=== PATIENT | female | born 1985 | race Caucasian/White ===

== ENCOUNTER → 2023-09-10 11:30 | Outpatient (BNV) | payer OTHER, SELFPAY | PROVIDERS: Visit Provider Psychiatry & Neurology Psychiatry | DX: F32.9 Major depressive disorder, single episode, unspecified (principal); F41.1 Generalized anxiety disorder; F90.9 Attention-deficit hyperactivity disorder, unspecified type; F43.89 Other reactions to severe stress; F69 Unspecified disorder of adult personality and behavior; F48.9 Nonpsychotic mental disorder, unspecified | CPT/HCPCS: 90792; 99213 ==

== ENCOUNTER → 2023-09-11 13:51 | Outpatient (REF) | payer OTHER, SELFPAY ==
--- NOTE | 2023-09-11 | ECG_ITS ---
Test Reason : CHECK QTC Blood Pressure : / mmHG Vent. Rate : 069 BPM Atrial Rate : 069 BPM P-R Int : 164 ms QRS Dur : 142 ms QT Int : 462 ms P-R-T Axes : 060 -34 123 degrees QTc Int : 495 ms Normal sinus rhythm Left axis deviation Left ventricular hypertrophy with QRS widening and repolarization abnormality ( R in aVL , [place] product , Romhilt-Mattson ) Abnormal ECG No previous ECGs available Referred By: Dana Bond Electronically Signed By:Dc Church
== END ==
LOC: HO.CARD 13:51
PROVIDERS: PCP Family Medicine; Visit Provider Psychiatry & Neurology Psychiatry
DX: F32.9 Major depressive disorder, single episode, unspecified (principal); Q21.0 Ventricular septal defect
CPT/HCPCS: 93005

== ENCOUNTER → 2023-09-11 14:09 | Outpatient (BNV) | payer OTHER, SELFPAY | PROVIDERS: PCP Family Medicine; Visit Provider Internal Medicine Cardiovascular Disease | DX: R94.31 Abnormal electrocardiogram [ECG] [EKG] (principal) | CPT/HCPCS: 93010 ==

== ENCOUNTER 2023-09-22 10:45 | Outpatient (RCR) | payer OTHER, SELFPAY ==
[2023-09-04 12:07] VITALS: BP 126/78; PULSE 63; TEMP 37.1; BMI 25.1
--- NOTE | 2023-09-04 12:51 | PC.ADMIT ---
Patient is a 37 year old non-binary individual who uses they/them pronouns. Patient was referred by Inpatient Behavioral Health unit at [facility] where they were admitted on 08/09-08/27/22 s/p overdose on 30 mg of Ativan mixed with a bottle of wine. Patient's reportedly found them unresponsive with shallow breathing. Prior to inpatient admission patient was admitted medically secondary to overdose for further management. BAL 71, toxicology screen positive for benzodiazapines. Shane was given Flumazenil for BDZ OD reversal with good affect and IV fluids. 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 They are on Warfarin daily. Patient reportedly had an argument with their the day of the overdose. Patient is currently alert and oriented x4. Calm and cooperative. Denied SI, HI. Patient given a copy of their safety plan and I reviewed the plan with them. Feels guilt and shame regarding overdose attempt and talking about their to others at work. Regarding the overdose attempt patient stated, I feel a lot of guilt and shame and how much I hurt my . I feel more and more glad that it didn't work . Medications reconciled with patient and patient's discharge paperwork from [facility] inpatient unit. Patient reports taking medications as prescribed.
--- NOTE | 2023-09-04 15:44 | PHP/IOPCOSI ---
Sals treatment plan was reviewed by the [facility] [place]. Their case has been opened and reviewed.
--- NOTE | 2023-09-04 17:59 | HO.PS.ADMBH ---
HPI Date of Service: 09/04/23 Chief Complaint: depression,SHANA,ADHD Sources of Information: patient interviewed, chart reviewed and crisis/core team assessment reviewed Additional Sources of Information: Patient prefers they/them pronouns. HPI Narrative: This is the first PHP admission for this 37 year non-binary patient with history significant for mental health and cardiac issues on warfarin, who was referred as a stepdown from recent IPLOC at [facility] APTU status post intentional overdose on lorazepam. They share their long standing struggles with depression, chronic SI, anxiety, ADHD. They deny any issues with alcohol or substance use. No history of psychotic symptoms. They report having a lot of guilt and shame over her actions and the stress and trauma this inflicted on their . They describe ongoing mood lability, feeling easily overwhelmed, high emotional reactivity and interpersonal hypersensitivity, poor stress/anxiety tolerance and experiences both cognitive and somatic anxiety including panic symptoms and insomnia. They deny any further SI since IP admission, denies any thoughts of harming self or others. They have been trying to focus on self care and continues to take a leave of absence from work using accrued sick time. They work as a speech and language pathologist and lives at home with her and cat. They are on a regime of medication including Concerta, ABilify, Lexapro which was recently increased. While inpatient, lorazepam, Buspar and amitriptyline was stopped. They were started on melatonin. They deny any significant issues with irritability or anger. Deny any aggressive ideation or HI. No AH or VH. Past Psychiatric History: IP psych hospitalization x1: APTU 07/2023 No PHP or detox admissions Hx of suicide attempts by overdose: 07/2023 and at age 14 SIB while IP OP therapist: Shameka Nielsen PsyD OP psych provider: Morenita Acevedo MD PCP: Gwendolyn Beckford MD Previous trials: lorazepam, buspirone, amitriptyline (for GI issues, otherwise ineffective) were stopped due to overdose and cardiac concerns. There is a history of other antidepressant and medication trials CURRENT MEDICATIONS: Abilify 2 mg qd Lexapro 20 mg qd Concerta 27 mg qAM trazodone 50-100 mg qhs PRN sleep melatonin hydroxyzine 50 mg PRN anxiety ramipril 1.25 mg qd Coumadin 10 mg qd (exc 15 mg qd //) Iron 65 mg qd [facility] Medical History (Updated 09/08/23 @ 09:50 by Dana Bond MD) On warfarin therapy ADHD Ventricular septal defect (VSD) Surgical History (Updated 09/04/23 @ 12:06 by Valerie Gutierrez RN) Aortic valve replaced H/O aortic valve repair Pulmonary valve replaced Social History: Lives at home with x 5 yrs No children Substance History: Alcohol: uses about 1x every few weeks, none since discharge Cannabis: none No substance use Trauma History: Endorses trauma history Diagnostics Vital Signs (24Hr): Vital Signs - 24 hr 09/04/23 12:07 Temperature 98.8 F Pulse Rate 63 Blood Pressure 126/78 BMI result Body Mass Index 25.1 Meds/Allergies Meds Home Medications Medication Instructions Recorded Confirmed Type ferrous sulfate 325 mg (65 mg 325 mg PO DAILY 09/04/23 09/04/23 History iron) tablet (Iron (ferrous sulfate)) melatonin 3 mg tablet 3 mg PO BEDTIME PRN Insomnia 09/04/23 09/04/23 History methylphenidate HCl 27 mg 27 mg PO DAILY 09/04/23 09/04/23 History tablet,extended release 24 hr ramipril 1.25 mg capsule 1.25 mg PO DAILY 09/04/23 09/04/23 History warfarin 10 mg tablet See Rx Instructions .Route .COMPLEX 09/16/23 09/16/23 History Allergies Allergies Allergy/AdvReac Type Severity Reaction Status Date / Time lactose Allergy Gastrointestinal Verified 09/04/23 13:04 Upset Mental Status Exam Mental Status Exam Narrative: Alert, oriented, in no acute distress. Calm, cooperative, engaged. No psychomotor agitation or neurovegetative retardation. Eye contact maintained. Mood anxious, affect constricted. Speech normal. Thought process linear, coherent. Thought content related to stressors, +transient helplessness, hopelessness but denies any passive SI, no suicidal intent, urge or plan. No aggressive ideation or HI. No paranoia or delusional content elicited. No evidence of psychosis. Insight and judgment fair but adequate. Assessment & Plan Assessment & Plan (1) Major depressive disorder: Status: Acute Code(s): F32.9 - Major depressive disorder, single episode, unspecified (2) Generalized anxiety disorder: Status: Acute Code(s): F41.1 - Generalized anxiety disorder (3) ADHD: Status: Acute Code(s): F90.9 - Attention-deficit hyperactivity disorder, unspecified type (4) Mental and behavioral problem in adult: Status: Acute Code(s): F69 - Unspecified disorder of adult personality and behavior; F48.9 - Nonpsychotic mental disorder, unspecified Assessment and Plan: r/o gender dysphoria r/o character pathology r/o complex PTSD Plan Admit to [facility] continue regular medications no refills required at this time continue to monitor as per protocol Patient educated on: diagnosis and medication risk/benefits Informed Consent: understands Reason for continued partial hosp. stay Substantial Risk for: inability to function, rapid decompensation and med/psych decompensation Certification I certify that partial hospital treatment is medically necessary due to the symptoms and problems resulting from the patient's mental illness and the failure to treat the patient at the partial hospital level of care would likely result in the patient requiring inpatient psychiatric care which could not be prevented at a less intensive level of care. Time Spent With Patient Time: Total time managing care of this patient today _60___ minutes.
--- NOTE | 2023-09-09 22:00 | P.PNPSP_ITS ---
Subjective Subjective Date of Service: 09/09/23 Reason For Visit: depression,SHANA,ADHD Interim History: Still not sleeping . Patient seen as requested as she is having some trouble sleeping. They take melatonin and 100 mg of trazodone at 9pm, then fall asleep easily enough but is then awakened sometime between 2-4 am, and are unable to fall back asleep for over an hour or 2. They typically will take some hydroxyzine in the middle of the night, and perhaps falls asleep for another hour and then wakes in the AM still tired. Getting a total of 5 hours. The hydroxyzine does not make her any more tired in the morning than when they dont take any. They report their mood is OK , overall stable, still presents as depressed, blunted affect but mostly focused on sleep issues. Anxiety persists, but feels like they are working through managing stress and anxiety better although frustration with sleep interferes. They deny any AVH, paranoia or SI or HI. Medication Compliance: Yes Side effects from medications: No Attending Groups: Yes Review of Systems Acute medical concerns: No Mental Status Exam Mental Status Exam Narrative: Alert, oriented, in no acute distress. Calm, cooperative, engaged. No psychomotor agitation or neurovegetative retardation. Eye contact maintained. Mood anxious, affect constricted. Speech normal. Thought process linear, coherent. Thought content related to stressors, denies any helplessness, hopelessness or SI. No aggressive ideation or HI. No paranoia or delusional content elicited. No evidence of psychosis. Insight and judgment fair but adequate. Diagnostics Vital Signs (24Hr): BMI result Body Mass Index 25.1 Assessment & Plan Assessment & Plan (1) Generalized anxiety disorder: Status: Acute Code(s): F41.1 - Generalized anxiety disorder (2) Major depressive disorder: Status: Acute Code(s): F32.9 - Major depressive disorder, single episode, unspecified (3) ADHD: Status: Acute Code(s): F90.9 - Attention-deficit hyperactivity disorder, unspecified type (4) Mental and behavioral problem in adult: Status: Acute Code(s): F69 - Unspecified disorder of adult personality and behavior; F48.9 - Nonpsychotic mental disorder, unspecified Assessment and Plan: r/o gender dysphoria r/o character pathology r/o complex PTSD Plan hold trazodone patient wishing to have TCA returned however given cardiac hx, there are likely other alternatives that would be safer start mirtazapine 7.5 - 15 mg qhs may consider zolpidem if mirtazapine for ineffective continue ABilify 2 mg qHS (?interfering with sleep) escitalopram 20 mg qd Concerta 27 mg qd ramipril 1.25 mg continue hydroxyzine 50 mg qd PRN melatonin 3 mg qhs PRN lab slip for EKG continue to monitor Patient educated on: diagnosis and medication risk/benefits Informed Consent: understands Reason for contiued partial hosp. stay Substantial Risk for: inability to function and med/psych decompensation Certification I certify that partial hospital treatment is medically necessary due to the symp toms and problems resulting from the patient's mental illness and the failure to treat the patient at the partial hospital level of care would likely result in the patient requiring inpatient psychiatric care which could not be prevented at a less intensive level of care. Total time managing care of this patient today __30__ minutes. Discharge Plan Discharge Attending provider: Dana Bond Medications: New mirtazapine 15 mg tablet 15 mg PO BEDTIME Qty: 14 0RF No Action trazodone 50 mg tablet 50 - 100 mg PO BEDTIME PRN (Reason: insomnia) hydroxyzine pamoate 50 mg Capsule 50 mg PO DAILY PRN (Reason: anxiety, nausea) melatonin 3 mg Tablet 3 mg PO BEDTIME PRN (Reason: Insomnia) ramipril 1.25 mg capsule 1.25 mg PO DAILY methylphenidate HCl 27 mg tablet extended release 24hr 27 mg PO DAILY escitalopram oxalate 20 mg tablet 20 mg PO QAM aripiprazole 2 mg Tablet 2 mg PO BEDTIME ferrous sulfate [Iron (ferrous sulfate)] 325 mg (65 mg iron) Tablet 325 mg PO DAILY Stand Alone Forms: Patient Portal Discharge page
--- NOTE | 2023-09-16 14:32 | PC.NURSE ---
Addendum entered by Valerie Gutierrez RN 09/24/23 08:19: Faxed EKG results competed on 09/11/23 to Shane's Information Systems Security Developer Dr. Malia Tavarez office on 09/22/23. I received a message from Mahendra JIMENEZ from Dr. Tavarez office stating the EKG that they received from us was reviewed by the nurse practitioner in the office and the results remain unchanged from Shane's last EKG. Addendum entered by Valerie Gutierrez RN 09/18/23 12:23: Discharge records from [facility] EKG results on 08/14/23 NSR, Left Axisi Deviation, Right bundle branch block, Left ventricular hypertrophy with repolarization abnormality (R in aVL, Romhilt-Mattson. Abnormal EKG when compared to 08/09/23. Dr Bond aware. Original Note: On 09/12/23 reviewed abnormal EKG results with Dr Bond. QTc 495, Normal Sinus Rhythm. Left Barnum Deviation, Left ventricular hypertrophy with QRS widening and repolarization abnormality (R in a VL, [place] product, Romhilt-Mattson. No new orders.
--- NOTE | 2023-09-16 20:20 | HO.PHPPROGNO ---
Subjective Subjective Date of Service: 09/16/23 Reason For Visit: depression,SHANA,ADHD Interim History: Patient seen for follow up. They report continues struggles with sleep, have been up since 2 am. Have gotten < 15 hours of sleep over the past 3 day weekend. is noticing their baseline anxiety is very high. Mood continues to be problematic, either feeling nothing or feeling awful . is concerned about their anxiety because that's when they lots of thoughts of self harming. They have some of these thoughts presently but no intention or plan to act on these thoughts or compulsions. They deny any suicidal ideation/ i/ u/ p. Energy is very low, concentration also poor due to poor sleep. Almost did not come to program today. Social anxiety more notable when stress tolerance low. Describes emotional lability ongoing can't tell if ABilify helping, but denies any worse. Denies any adverse effects. We discussed plan to switch off Lexapro and onto Paxil and further titrating ABilify. Patient presents with more lability today, I suspect this is due to poor sleep but for now will hold off on the Ambien and will offer short term clonazepam to help with sleep, acute anxiety in the short term. Especially given that patient had managed sleep in the past successfully with lorazepam, however patient had a significant overdose on lorazepam. SHe says she would nonetheless be open to taking a benzodiazepine because she recognizes she is in a much worse place mentally for the lack of sleep . We included their in our discusssion today, including safety planning. agrees that a PRN clonazepam would be helpful just for the next few days in order to help with sleep and to manage anxiety especially in order to tolerate PHP/group therapy, and feel less overstimulated. ROS reviewed, positive for headache today. Appetite variable, no change. Patient denies any alcohol or substance use. Medication Compliance: Yes Side effects from medications: Yes (as noted above) Review of Systems Acute medical concerns: No Mental Status Exam Mental Status Exam Narrative: Alert, oriented, in no acute distress. Calm, cooperative, engaged. Appears tired. No psychomotor agitation or neurovegetative retardation. Eye contact variable. Mood anxious, depressed affect more labile. Speech normal. Thought process linear, coherent, more scattered. Thought content related to stressors, transient helplessness, hopelessness, +thoughts of self harming, but denies any intent or plan to harm self, denies any SI. No aggressive ideation or HI. No paranoia or delusional content elicited. No evidence of psychosis. Insight and judgment fair but adequate. Diagnostics Vital Signs (24Hr): BMI result Body Mass Index 25.1 Assessment & Plan Assessment & Plan (1) Major depressive disorder: Status: Acute Code(s): F32.9 - Major depressive disorder, single episode, unspecified (2) Generalized anxiety disorder: Status: Acute Code(s): F41.1 - Generalized anxiety disorder (3) ADHD: Status: Acute Code(s): F90.9 - Attention-deficit hyperactivity disorder, unspecified type (4) Other acute reactions to stress: Status: Acute Code(s): F43.89 - Other reactions to severe stress (5) Mental and behavioral problem in adult: Status: Acute Code(s): F69 - Unspecified disorder of adult personality and behavior; F48.9 - Nonpsychotic mental disorder, unspecified Assessment and Plan: Borderline traits Plan start clonazepam 1 mg tonight hold zolpidem start paroxetine 10 mg qhs decrease escitalopram to 10 mg, plan to taper off continue Abilify 2 mg daily for now, will plan to titrate after switching antidepressant continue other regular medications pending lab work EKG result reviewed - prolonged QTc 495 ms, improved from previous EKG (will discont Lexapro, Paxil has better profile re: QTc) Safety planning reviewed with patient and during session today ( is holding onto patient's medications and is aware of BZD script and agreeable with plan) continue to monitor closely Patient educated on: diagnosis and medication risk/benefits Informed Consent: understands Reason for contiued partial hosp. stay Substantial Risk for: harm to self, inability to function, rapid decompensation and med/psych decompensation Certification I certify that partial hospital treatment is medically necessary due to the symptoms and problems resulting from the patient's mental illness and the failure to treat the patient at the partial hospital level of care would likely result in the patient requiring inpatient psychiatric care which could not be prevented at a less intensive level of care. Total time managing care of this patient today __40__ minutes. Discharge Plan Discharge Attending provider: Dana Bond Medications: New aripiprazole 5 mg tablet 5 mg PO DAILY Qty: 14 0RF paroxetine HCl 40 mg tablet 40 mg PO .QHS 14 Days Qty: 14 0RF Continued melatonin 3 mg Tablet 3 mg PO BEDTIME PRN (Reason: Insomnia) ramipril 1.25 mg capsule 1.25 mg PO DAILY methylphenidate HCl 27 mg tablet extended release 24hr 27 mg PO DAILY ferrous sulfate [Iron (ferrous sulfate)] 325 mg (65 mg iron) Tablet 325 mg PO DAILY warfarin 10 mg tablet See Rx Instructions .ROUTE .COMPLEX Rx Instructions: Take 10 mg on Sundays and 15 mg on Friday-Friday or as directed by Coumadin clinic. Changed clonazepam 1 mg tablet 1 mg PO .QHS PRN (Reason: insomnia) Qty: 10 0RF hydroxyzine pamoate 50 mg Capsule 50 mg PO BEDTIME PRN (Reason: sleep) Qty: 10 0RF zolpidem 5 mg tablet 7.5 mg PO BEDTIME PRN (Reason: for sleep) Qty: 15 0RF Discontinued trazodone 50 mg tablet 50 - 100 mg PO BEDTIME PRN (Reason: insomnia) escitalopram oxalate 20 mg tablet 20 mg PO QAM aripiprazole 2 mg Tablet 2 mg PO BEDTIME Stand Alone Forms: Patient Portal Discharge page Patient Education: Depression (DC)
--- NOTE | 2023-09-19 22:40 | P.PNPSP_ITS ---
Subjective Subjective Date of Service: 09/19/23 Reason For Visit: depression,SHANA,ADHD Interim History: Continues to struggle with sleep. Took 1 mg of clonazepam around 9pm was able to fall asleep for a couple of hours, but woke at 1am and took another 0.5 mg tablet which was unhelpful and they were unable to fall back asleep. They are feeling thready and increasingly overwhelmed by the lack of sleep. Mood remains depressed, but they feel safe. Their partner has been helpful and supportive. They worry they are burdensome. Occasional passive SI without intent or plan, denies currently but relays feeling generally pessimistic. They are willing to increase ABilify to 2.5 mg tonight and then increase to 5 mg over the weekend. They picked up the Paxil the other day but have not started yet. They have been taking Lexapro now at 10 mg. We will plan to cross taper over the next upcoming days as tolerated. They will start 10 mg Paxil and if tolerated, will increase to 20 mg Friday and decrease Lexapro to 5 mg. BY Friday will taper off Lexparo and Paxil will be at 30 mg qhs. In the mean time, will allow patient to restart Ambien and continue along with clonazepam PRN to see if patient will be able to sleep. They are looking forward to spending time with partner in [facility] for the [place]selia loz[place]. They are staying in an expensive hotel that they got for a good deal. Mental Status Exam Mental Status Exam Narrative: Alert, oriented, in no acute distress. Calm, cooperative, engaged. No psychomotor agitation or neurovegetative retardation. Eye contact maintained. Mood depressed, anxious affect constricted. Speech normal. Thought process linear, coherent. Thought content related to stressors, transient hopelessness, denies SI or HI. No paranoia or delusional content elicited. No evidence of psychosis. Insight and judgment impaired. Diagnostics Vital Signs (24Hr): BMI result Body Mass Index 25.1 Assessment & Plan Assessment & Plan (1) Major depressive disorder: Status: Acute Code(s): F32.9 - Major depressive disorder, single episode, unspecified (2) Generalized anxiety disorder: Status: Acute Code(s): F41.1 - Generalized anxiety disorder (3) ADHD: Status: Acute Code(s): F90.9 - Attention-deficit hyperactivity disorder, unspecified type (4) Other acute reactions to stress: Status: Acute Code(s): F43.89 - Other reactions to severe stress Plan increase Abilify to 2.5 mg and then onto 5 mg daily start paroxetine 10 mg tonight, if tolerated increase dose of paroxetine to 20 mg over weekend decrease escitalopram to 5 mg, plan to taper off continue clonazepam 1 mg qhs PRN reinstate zolpidem 5 - 10 mg qhs PRN along with clonazepam continue other regular medications pending lab work EKG result reviewed - prolonged QTc 495 ms, improved from previous EKG (will discont Lexapro, Paxil has better profile re: QTc) continue to monitor Patient educated on: diagnosis and medication risk/benefits Informed Consent: understands Reason for contiued partial hosp. stay Substantial Risk for: harm to self, inability to function, rapid decompensation and med/psych decompensation Certification I certify that partial hospital treatment is medically necessary due to the symptoms and problems resulting from the patient's mental illness and the failure to treat the patient at the partial hospital level of care would likely result in the patient requiring inpatient psychiatric care which could not be prevented at a less intensive level of care. Total time managing care of this patient today __30__ minutes. Discharge Plan Discharge Attending provider: Dana Bond Medications: New zolpidem 5 mg tablet 5 mg PO BEDTIME PRN (Reason: for sleep) Qty: 20 0RF escitalopram oxalate 10 mg tablet 10 mg PO DAILY Qty: 14 0RF aripiprazole 5 mg tablet 5 mg PO DAILY Qty: 14 0RF paroxetine HCl 20 mg tablet 20 mg PO .QHS Qty: 14 0RF clonazepam 1 mg tablet 1 - 1.5 mg PO BEDTIME PRN (Reason: insomnia) Qty: 20 0RF Rx Instructions: administer 30 minutes before bedtime Continued melatonin 3 mg Tablet 3 mg PO BEDTIME PRN (Reason: Insomnia) ramipril 1.25 mg capsule 1.25 mg PO DAILY ferrous sulfate [Iron (ferrous sulfate)] 325 mg (65 mg iron) Tablet 325 mg PO DAILY Discontinued trazodone 50 mg tablet 50 - 100 mg PO BEDTIME PRN (Reason: insomnia) escitalopram oxalate 20 mg tablet 20 mg PO QAM aripiprazole 2 mg Tablet 2 mg PO BEDTIME No Action hydroxyzine pamoate 50 mg Capsule 50 mg PO DAILY PRN (Reason: anxiety, nausea) methylphenidate HCl 27 mg tablet extended release 24hr 27 mg PO DAILY warfarin 10 mg tablet See Rx Instructions .ROUTE .COMPLEX Rx Instructions: Take 10 mg on Sundays and 15 mg on Friday-Friday or as directed by Coumadin clinic. Stand Alone Forms: Patient Portal Discharge page
--- NOTE | 2023-09-22 17:37 | P.PNPSP_ITS ---
Subjective Subjective Date of Service: 09/22/23 Reason For Visit: depression,SHANA,ADHD Interim History: Patient seen for follow-up, anticipating discharge at the end of program today.? Medication compliant, medications well-tolerated. Denies any adverse effects. Reports feeling relatively okay today, was anxious a little in the morning . She is feeling less agitated with increase of Abilify to 5 mg and also Paxil was at 20 mg, and Lexapro was tapered from 10 to 5 mg last night. They have tolerated cross taper thus far, and will plan to complete transition onto full tablet of Paxil 40 mg and off Lexapro at end of the week. Sleep is improving, they have been taking Klonopin and Ambien. Mood is still anxious, but less depressed and says they are better able to manage the anxiety, now that they are getting some sleep.? Denies any hopelessness or SI. No SIB over weekend. Denies thoughts of harming self or others at this time. Denies any aggressive ideation or HI. Denies any paranoia or AH or VH. Sleep, appetite, energy stable. Medication Compliance: Yes Side effects from medications: No Attending Groups: Yes Review of Systems Acute medical concerns: No Mental Status Exam Mental Status Exam Narrative: Alert, oriented, in no acute distress. Calm, cooperative. Mood less depressed, affect some brightening, more appropriate. Speech normal. Thought process linear, coherent, more goal-directed. Thought content related to stressors, future-oriented, denies any helplessness, hopelessness or SI.? No aggressive ideation or HI. No paranoia or delusional content elicited. No evidence of psychosis. Insight and judgment fair-good. Diagnostics Vital Signs (24Hr): BMI result Body Mass Index 25.1 Assessment & Plan Assessment & Plan (1) Major depressive disorder: Status: Acute Code(s): F32.9 - Major depressive disorder, single episode, unspecified (2) Generalized anxiety disorder: Status: Acute Code(s): F41.1 - Generalized anxiety disorder (3) Other acute reactions to stress: Status: Acute Code(s): F43.89 - Other reactions to severe stress (4) ADHD: Qualifiers: Attention deficit-hyperactivity disorder type: unspecified Qualified Code(s): F90.9 - Attention-deficit hyperactivity disorder, unspecified type Status: Acute Code(s): F90.9 - Attention-deficit hyperactivity disorder, unspecified type Assessment and Plan: hx of diagnosis per patient report (5) Mental and behavioral problem in adult: Status: Acute Code(s): F69 - Unspecified disorder of adult personality and behavior; F48.9 - Nonpsychotic mental disorder, unspecified Assessment and Plan: Borderline traits Plan Discharge from [facility] continue regular medications plan to titrate to 40 mg of Paxil and off of Lexapro in 4 days continue Abilify 5 mg qhs continue PRN Ambien and will taper off use of BZD as previously discussed w pt continue other regular medication will defer further medication management to outpatient provider - next appointment with Dr. Morenita Acevedo on September 28 they plan to inquire about seeing their therapist twice a week (rather than weekly) Refills sent to pharmacy Patient educated on: diagnosis and medication risk/benefits Informed Consent: understands Reason for contiued partial hosp. stay Substantial Risk for: stable for discharge Certification I certify that partial hospital treatment is medically necessary due to the symptoms and problems resulting from the patient's mental illness and the failure to treat the patient at the partial hospital level of care would likely result in the patient requiring inpatient psychiatric care which could not be prevented at a less intensive level of care. Total time managing care of this patient today _30___ minutes. Discharge Plan Discharge Attending provider: Dana Bond Medications: New aripiprazole 5 mg tablet 5 mg PO DAILY Qty: 14 0RF paroxetine HCl 40 mg tablet 40 mg PO .QHS 14 Days Qty: 14 0RF Continued melatonin 3 mg Tablet 3 mg PO BEDTIME PRN (Reason: Insomnia) ramipril 1.25 mg capsule 1.25 mg PO DAILY methylphenidate HCl 27 mg tablet extended release 24hr 27 mg PO DAILY ferrous sulfate [Iron (ferrous sulfate)] 325 mg (65 mg iron) Tablet 325 mg PO DAILY warfarin 10 mg tablet See Rx Instructions .ROUTE .COMPLEX Rx Instructions: Take 10 mg on Sundays and 15 mg on Friday-Friday or as directed by Coumadin clinic. Changed clonazepam 1 mg tablet 1 mg PO .QHS PRN (Reason: insomnia) Qty: 10 0RF hydroxyzine pamoate 50 mg Capsule 50 mg PO BEDTIME PRN (Reason: sleep) Qty: 10 0RF zolpidem 5 mg tablet 7.5 mg PO BEDTIME PRN (Reason: for sleep) Qty: 15 0RF Discontinued trazodone 50 mg tablet 50 - 100 mg PO BEDTIME PRN (Reason: insomnia) escitalopram oxalate 20 mg tablet 20 mg PO QAM aripiprazole 2 mg Tablet 2 mg PO BEDTIME Stand Alone Forms: Patient Portal Discharge page Patient Education: Depression (DC) Telehealth Telehealth Location of provider rendering services: other (private office) Location of patient: other ([facility]) Patient Identification confirmed using: Name, : Yes Telehealth method: video Patient verbally consented to treatment: Yes
== END 2023-09-22 23:59 | disposition home or self-care (01) ==
LOC: HO.PHPA 10:45
PROVIDERS: Visit Provider Psychiatry & Neurology Psychiatry
DX: F32.9 Major depressive disorder, single episode, unspecified (principal); F41.1 Generalized anxiety disorder; F90.9 Attention-deficit hyperactivity disorder, unspecified type; F69 Unspecified disorder of adult personality and behavior; F48.9 Nonpsychotic mental disorder, unspecified; F43.89 Other reactions to severe stress; Z79.899 Other long term (current) drug therapy
CPT/HCPCS: 90791; 90853

== ENCOUNTER 2024-10-02 13:07 | Inpatient (IN) | payer BC, SELFPAY ==
[2024-10-02 13:11] VITALS: BP 152/72; PULSE 82; RESP 14; TEMP 36.2; O2SAT 100; BMI 29.4
[2024-10-02 13:28] VITALS: RESP 14
--- NOTE | 2024-10-02 13:36 | MHC.EDTECH ---
pt changed over into hospital attire, belongings checked by security, list created and printed in chart, placed in [facility]. pt significant other at bedside, took some of pt belongings home. given water and rosalind ariana, sitting quietly in room area at this time
[2024-10-02 14:29] LABS: MANUAL DIFF FLAG NO
[2024-10-02 14:30] LABS: Basophils Absolute Auto 0.1 X10*3/uL (0.0-0.2); Basophils Percent Auto 1.6 % (0-2); Eosinophils Absolute Auto 0.2 X10*3/uL (0.0-0.4); Hematocrit 43.7 % (37.0-47.0); Hemoglobin 15.3 g/dl (12.0-16.0); Imm Gran Abs Auto 0.02 X10*3/uL (0.00-0.03); Imm Gran Pct Auto 0.3 % (0.0-0.4); Lymphocytes Absolute Auto 1.2 X10*3/uL (1.2-4.9); Lymphocytes Percent Auto 16.6 % (20-40); Mean Corpuscular Hemoglobin 29.3 pg (27.0-33.0); Mean Corpuscular Volume 83.7 fL (80.0-98.0); Mean Platelet Volume 9.5 fL (9.4-12.3); Monocytes Absolute Auto 0.5 X10*3/uL (0.1-1.2); Monocytes Percent Auto 6.5 % (2-11); Neutrophils Absolute Auto 5.3 x10*3/uL (2.0-8.3); Platelet Count 334 X10*3/uL (160-400); Red Blood Count 5.22 X10*6/uL (4.20-5.50); Red Cell Distribution Width 12.7 % (11.0-16.0); White Blood Count 7.3 X10*3/uL (4.8-10.8)
--- NOTE | 2024-10-02 14:45 | ED.PSYCH ---
HPI - Psych General Chief Complaint: Psychiatric Symptoms Stated Complaint: crisis Time Seen by Provider: 10/02/24 13:32 Source: patient Mode of arrival: ambulatory Limitations: no limitations History of Present Illness ED Provider: ROSA Villarreal HPI Narrative: 38-year-old female history of depression, anxiety, ADHD, ventricular septal defect with mechanical valve in place and on anticoagulation therapy who goes by they them or their presents w/ cc of I tried to comit suicide . They tell me that they cut their right forearm in hopes to . Patient up-to-date on tetanus shot. Laceration is no longer bleeding. They have been feeling down for the last few days. Denies visual, auditory and tactile hallucinations. Denies medical complaints. Denies homicidal ideation. Related Data Home Medications ?Medication ?Instructions ?Recorded ?Confirmed ramipril 1.25 mg capsule 1.25 mg PO DAILY 09/04/23 10/02/24 warfarin 10 mg tablet See Rx Instructions .Route .COMPLEX 09/16/23 10/02/24 amitriptyline 75 mg tablet 75 mg PO BEDTIME 10/02/24 10/02/24 clonazepam 1 mg tablet 2 mg PO BEDTIME 10/02/24 10/02/24 duloxetine 60 mg capsule,delayed 60 mg PO DAILY 10/02/24 10/02/24 release melatonin 3 mg tablet 3 mg PO BEDTIME 10/02/24 10/02/24 methylphenidate HCl 36 mg 36 mg PO QAM 10/02/24 10/02/24 tablet,extended release 24 hr Allergies Allergy/AdvReac Type Severity Reaction Status Date / Time No Known Allergies Allergy Verified 10/02/24 13:12 Review of Systems Review of Systems: Yes all other systems are reviewed and are negative PMFSH Past Medical History Attestation statement: The following information was validated with the patient. Source: old records reviewed and nursing notes reviewed Medical History On warfarin therapy ADHD Ventricular septal defect (VSD) Surgical History Aortic valve replaced H/O aortic valve repair Pulmonary valve replaced Social History Social History Household Members: Spouse Patient Tobacco Use Status: Never used Tobacco Smoked in Last 30 Days: No Use of substances other than those prescribed or required for medical reasons: No Advance Directives: No Advance Directives Information Provided: Yes Patient : No Physical Exam Vital Signs: Vital Signs: Last Vital Signs Temp 97.1 F 10/02/24 13:11 Pulse 82 10/02/24 13:11 Resp 14 10/02/24 13:28 BP 152/72 H 10/02/24 13:11 Pulse Ox 100 10/02/24 13:11 O2 Del Method Room Air 10/02/24 13:11 BMI result Body Mass Index 29.4 vss Appearance: Alert.? Oriented X3.? No acute distress.? Head: Normocephalic, atraumatic, no step-offs or deformities Eyes: Pupils equal, round and reactive to light.? Neck: Normal inspection.? Neck supple.? CVS: Normal heart rate and rhythm.? Pulses normal.?+ murmur Respiratory: No respiratory distress.? Breath sounds normal.? Abdomen: Soft and nontender.? Skin: Skin warm and dry.? Normal skin color.? Normal skin turgor.? + right forearm w/ superficial lac to ventral aspect of forearm not bleeding around 4 cm and superficial Extremities: No lower extremity edema.? No calf ttp. 5/5 strength to bilateral upper and lower extremities Back: No midline tenderness, no C-spine tenderness, full range of motion, no CVA tenderness bilaterally Neuro: Oriented X 3.? No motor deficit.? No sensory deficit. CN 2-12 intact Course Reevaluation(s) Reevaluation #1: CBC unremarkable. Chemistry no acute findings eating intervention ethanol negative. Urine and urine toxicology pending however despite these findings patient plan remains in place to seek care team. At this time patient will be placed into physician observation to allow more time to be evaluated by care team. At time observation was started patient common cooperative no acute distress will continue to monitor Time: 15:21 Medical Decision Making Medical Decision Making MDM Narrative: 38-year-old female presents with suicidal ideation she tried to cut her wrist in hopes of dying. Physical exam superficial lack to right ventral forearm, nonbleeding. Neurovascular status intact. History and physical exam concerning for suicide attempt, anxiety and depression. Psychosis also differential as well as bipolar disorder. Will rule out metabolic derangements. Plan medical clearance evaluation by care Differential Diagnosis Differential Diagnoses: The differential diagnosis associated with the presentation includes (History and physical exam concerning for suicide attempt, anxiety and depression. Psychosis also differential as well as bipolar disorder. Will rule out metabolic derangements.) Admission/Observation Consideration of admission/observation: Escalation of care including admission/observation considered Lab Data MDM Lab Attestation statement: I reviewed the patient's lab results. 10/02/24 14:24 10/02/24 14:24 Labs: Lab Results 10/02/24 Range/Units 14:24 WBC 7.3 (4.8-10.8) X10*3/uL RBC 5.22 (4.20-5.50) X10*6/uL Hgb 15.3 (12.0-16.0) g/dl Hct 43.7 (37.0-47.0) % MCV 83.7 (80.0-98.0) fL MCH 29.3 (27.0-33.0) pg MCHC 35.0 (31.0-35.0) g/dl RDW 12.7 (11.0-16.0) % Plt Count 334 (160-400) X10*3/uL MPV 9.5 (9.4-12.3) fL Immature Gran % (Auto) 0.3 (0.0-0.4) % Neut % (Auto) 73.0 (45-73) % Lymph % (Auto) 16.6 L (20-40) % [place] % (Auto) 6.5 (2-11) % Eos % (Auto) 2.0 (0-4) % Baso % (Auto) 1.6 (0-2) % Lymph # (Auto) 1.2 (1.2-4.9) X10*3/uL [place] # (Auto) 0.5 (0.1-1.2) X10*3/uL Eos # (Auto) 0.2 (0.0-0.4) X10*3/uL Baso # (Auto) 0.1 (0.0-0.2) X10*3/uL Abs Immat Gran (auto) 0.02 (0.00-0.03) X10*3/uL Absolute Neuts (auto) 5.3 (2.0-8.3) x10*3/uL Absolute Nucleated RBC 0.000 (0.0-0.012) X10*3/uL Nucleated RBC % (auto) 0.0 (0.0-0.2) /100WBC Sodium 139 (135-145) mmol/L Potassium 4.1 (3.3-5.1) mmol/L Chloride 107 (96-108) mmol/L Carbon Dioxide 25 (22-29) mmol/L Anion Gap 11 L (12-20) BUN 8 L (9-16) mg/dL Creatinine 0.78 (0.5-1.4) mg/dL Estim Creat Clear Calc 102.3 Estimated GFR > 60 Random Glucose 84 (60-115) mg/dL Calcium 9.3 (8.4-10.2) mg/dL Total Bilirubin 0.4 (0.0-1.0) mg/dL AST 23 (5-31) U/L ALT 18 (0-31) U/L Alkaline Phosphatase 66 (39-117) U/L Total Protein 7.6 (6.5-8.0) g/dL Albumin 4.4 (3.5-5.0) g/dL Ethyl Alcohol < 10 mg/dL External Record Review External record reviewed: Outpatient record Chronic Conditions Patient?s care impacted by: Other (see hpi ) Social Determinants Patient?s care significantly limited by Social Determinants of Health including: Other Social Determinant of Health Critical Care Time Critical Care Time Critical Care Time: No Discharge Plan Discharge Clinical Impression: Suicidal ideation Patient Disposition: Still a Patient Prescriptions: No Action amitriptyline 75 mg tablet 75 mg PO BEDTIME clonazepam 1 mg tablet 2 mg PO BEDTIME melatonin 3 mg tablet 3 mg PO BEDTIME methylphenidate HCl 36 mg tablet extended release 24hr 36 mg PO QAM duloxetine 60 mg capsule,delayed release(DR/EC) 60 mg PO DAILY ramipril 1.25 mg capsule 1.25 mg PO DAILY warfarin 10 mg tablet See Rx Instructions .ROUTE .COMPLEX Rx Instructions: Take 10 mg on Sundays and 15 mg on Friday-Friday or as directed by Coumadin clinic. Interventions: [place]-Suicide Risk Severity Scale Last Done: 10/02/24 13:28 Print Language: Yakut
[2024-10-02 14:56] LABS: Alanine Aminotransferase 18 U/L (0-31); Albumin Level 4.4 g/dL (3.5-5.0); Alkaline Phosphatase 66 U/L (39-117); Anion Gap 11 (12-20); Aspartate Amino Transferase 23 U/L (5-31); Bilirubin Total 0.4 mg/dL (0.0-1.0); Blood Urea Nitrogen 8 mg/dL (9-16); Calcium 9.3 mg/dL (8.4-10.2); Carbon Dioxide 25 mmol/L (22-29); Chloride 107 mmol/L (96-108); Creatinine Clr Calc Pharmacy 102.3; Estimated Glomerular Filt Rate > 60; Ethanol < 10 mg/dL; Glucose Random 84 mg/dL (60-115); Potassium 4.1 mmol/L (3.3-5.1); Sodium 139 mmol/L (135-145); Total Protein 7.6 g/dL (6.5-8.0)
[2024-10-02 21:03] VITALS: BP 133/76; PULSE 69; RESP 18; TEMP 36.6; O2SAT 100
--- NOTE | 2024-10-02 21:21 | MHC.CARE ---
Pt assessed by [facility] in the community and is an inpatient bedsearch.
[2024-10-02 21:26] LABS: INTERNATIONAL NORM RATIO 2.8 (0.9-1.1); Prothrombin Time 32.7 SEC (10.9-12.4)
[2024-10-02] MEDS: Melatonin 3 MG TABLET PO (21:44)
[2024-10-02] MEDS: Amitriptyline HCl 25 MG TABLET 75 MG PO (21:44)
[2024-10-02] MEDS: clonazePAM 1 MG TABLET 2 MG PO (21:44)
[2024-10-02] MEDS: Warfarin Sodium 5 MG TABLET 10 MG PO (22:12)
[2024-10-02 22:38] LABS: Appearance Urine Cloudy; Color Urine Yellow; Glucose Urine UA Negative (Negative); Leukocyte Esterase Urine Small (1+) (Negative); Nitrite Urine Negative (Negative); UMIC TRIGGER UACC YES; Urine Blood Trace (Negative); Urine Ketones Trace mg/dL (Negative); Urine Protein 30 (1+) mg/dL (Neg-Trace)
[2024-10-02 22:43] LABS: Bacteria Urine 1+ (None Seen); Hyaline Casts Urine 0-2 /LPF (0-2); UACC Culture Trigger YES
[2024-10-02 22:51] LABS: Amphetamine Screen Urine Not Detected (Not Detect); Barbiturates, Urine Not Detected (Not Detect); Benzodiazepines Screen Urine Not Detected (Not Detect); Buprenorphine Scr Not Detected (Not Detect); Cannabinoid Screen Urine Not Detected (Not Detect); Cocaine Screen Urine Not Detected (Not Detect); Fentanyl, urine Not Detected (Not Detect); Methadone Screen, Urine Not Detected (Not Detect); Opiate Screen Urine Not Detected (Not Detect); Oxycodone Screen Urine Not Detected (Not Detect); Phencyclidine Screen Urine Not Detected (Not Detect)
--- NOTE | 2024-10-02 23:59 | PC.NURSE ---
Patient sleeping. Respirations even & unlabored. Care ongoing by this RN. [facility] inpatient bedsearch.
[2024-10-03 06:36] VITALS: BP 124/77; PULSE 63; RESP 15; TEMP 36.4; O2SAT 100
--- NOTE | 2024-10-03 07:10 | PC.NURSE ---
Assumed care of patient at 0645, patient appears to be sleeping, respirations even and unlabored, no apparent distress noted this am. Continue plan of care for inpatient bedsearch
[2024-10-03 08:16] VITALS: BP 120/71; PULSE 72; RESP 18; TEMP 36.9; O2SAT 100
[2024-10-03] MEDS: RAMIPRIL 1.25 MG 1.25 EACH PO (10:35)
[2024-10-03] MEDS: DULoxetine HCl 60 MG CAPSULE.DR PO (10:35)
--- NOTE | 2024-10-03 18:28 | PC.NURSE ---
waiting Coumadin from pharmacy, need re-draw if PT with INR, attempting lab draw at this time
--- NOTE | 2024-10-03 19:30 | PC.NURSE ---
Pt is due for coumadin at 1800 but INR result is not available. Called lab regarding INR result as it was received in report that INR was drawn and sent. Lab will follow up with result.
[2024-10-03 19:41] LABS: INTERNATIONAL NORM RATIO 3.2 (0.9-1.1); Prothrombin Time 36.9 SEC (10.9-12.4)
[2024-10-03 20:38] VITALS: BP 123/66; PULSE 64; RESP 18; TEMP 36.6; O2SAT 97
[2024-10-03] MEDS: clonazePAM 1 MG TABLET 2 MG PO (21:29)
[2024-10-03] MEDS: Warfarin Sodium 10 MG TABLET PO (21:29)
[2024-10-03] MEDS: Melatonin 3 MG TABLET PO (21:30)
[2024-10-03] MEDS: Amitriptyline HCl 25 MG TABLET 75 MG PO (21:30)
[2024-10-04 06:16] VITALS: BP 127/74; PULSE 56; RESP 15; TEMP 36.7; O2SAT 98
--- NOTE | 2024-10-04 06:34 | PC.NURSE ---
Pt slept throughout the night with no issues or concerns. Breaths remained even regular and unlabored. No apparent distress noted. Monitoring is ongoing.
[2024-10-04 07:48] LABS: INTERNATIONAL NORM RATIO 2.7 (0.9-1.1); Prothrombin Time 31.9 SEC (10.9-12.4)
[2024-10-04 07:59] LABS: Creatinine Clr Calc Pharmacy 107.8; Estimated Glomerular Filt Rate > 60
--- NOTE | 2024-10-04 09:38 | ECG_ITS ---
Test Reason : r/o prolonged qt Blood Pressure : */* mmHG Vent. Rate : 66 BPM Atrial Rate : 66 BPM P-R Int : 186 ms QRS Dur : 168 ms QT Int : 456 ms P-R-T Axes : 14 -47 129 degrees QTcB Int : 478 ms Normal sinus rhythm Right bundle branch block Left anterior fascicular block Bifascicular block Left ventricular hypertrophy with repolarization abnormality ( R in aVL , Romhilt-Mattson ) Abnormal ECG When compared with ECG of 11-Sep-2023 14:09, No significant changes seen Referred By: Paresh Lopez Electronically Signed By: DARLENE CASTRO
[2024-10-04] MEDS: METHYLPHENIDATE HCL 36 MG 36 EACH PO (10:07)
[2024-10-04] MEDS: DULoxetine HCl 60 MG CAPSULE.DR PO (10:08)
[2024-10-04] MEDS: RAMIPRIL 1.25 MG 1.25 EACH PO (10:08)
--- NOTE | 2024-10-04 10:19 | PHA.MEDREC ---
Addendum entered by Danilo Roman RPh 10/04/24 10:55: Reviewed by [facility] Original Note: Pharmacy Consult ? Medication Reconciliation Pharmacy has reviewed the medication reconciliation done by nursing. Claims match med list.
[2024-10-04 13:38] VITALS: BMI 29.4
[2024-10-04 13:43] VITALS: BP 141/65; PULSE 77; RESP 18; TEMP 36.4; O2SAT 100
[2024-10-04 13:45] VITALS: BP 141/65; PULSE 77; RESP 17; TEMP 36.4; O2SAT 100
[2024-10-04 14:37] LABS: Alanine Aminotransferase 17 U/L (0-31); Albumin Level 4.2 g/dL (3.5-5.0); Alkaline Phosphatase 70 U/L (39-117); Anion Gap 11 (12-20); Aspartate Amino Transferase 22 U/L (5-31); Bilirubin Total 0.5 mg/dL (0.0-1.0); Blood Urea Nitrogen 11 mg/dL (9-16); Calcium 9.3 mg/dL (8.4-10.2); Carbon Dioxide 25 mmol/L (22-29); Chloride 107 mmol/L (96-108); Creatinine Clr Calc Pharmacy 109.1; Estimated Glomerular Filt Rate > 60; Glucose Fasting 124 mg/dL (60-99); Potassium 4.5 mmol/L (3.3-5.1); Sodium 138 mmol/L (135-145); Total Protein 7.5 g/dL (6.5-8.0)
--- NOTE | 2024-10-04 16:30 | PC.ADMIT ---
Patient is a 38 year old non binary (prefers they/them pronouns) who was admitted at 1323 on a CV for treatment of MDD and generalized anxiety disorder. Per the crisis eval, the patients spouse called [facility] on the patients behalf after they had gone into the [facility] with a knife and made superficial cuts to their wrist. Upon admission assessment, patient is A&Ox4 with clear speech and linear thought process. According to the patient, they have a hx of depression with past suicidal attempts And the last few weeks have just been harder for me with all of the stressors in my life . Patient reports experiencing anhedonia and anergia over the last few weeks I feel like at this point I'm just a burden for my , I thought she'd be better off without me so I went into the [facility] with plans of ending it but then I got scared and ended up calling her for help. Now I feel like a coward . They report sleep and appetite are fine , tox screen negative and pt denies any current SI I just feel hopeless . Upon skin check, patient was noted to have multiple superficial cuts to their right wrist, along with an old vertical scar in the midline of their chest r/t cardiac surgery. (Pt has surgical hx of aortic and pulmonary valve replacements and a dx of VSD), otherwise no physical complaints noted or reported. They have been placed on 15 minute checks for safety.
[2024-10-04] MEDS: Warfarin Sodium 5 MG TABLET 15 MG PO (17:48)
[2024-10-04 20:00] VITALS: BP 132/68; PULSE 77; RESP 16; TEMP 37.3; O2SAT 99
[2024-10-04] MEDS: Amitriptyline HCl 25 MG TABLET 75 MG PO (20:53)
[2024-10-04] MEDS: Melatonin 3 MG TABLET PO (20:54)
[2024-10-04] MEDS: clonazePAM 1 MG TABLET 2 MG PO (20:54)
[2024-10-04 20:56] VITALS: TEMP 37.1
[2024-10-05 08:30] VITALS: BP 134/71; PULSE 75; RESP 16; TEMP 36.2; O2SAT 100
[2024-10-05 08:51] LABS: INTERNATIONAL NORM RATIO 3.1 (0.9-1.1); Prothrombin Time 35.9 SEC (10.9-12.4)
[2024-10-05 08:52] LABS: Cholesterol 210 mg/dL (<200); HDL Cholesterol 52 mg/dL (>40); LDL Cholesterol Calculated 130 mg/dL (<100); Triglycerides 142 mg/dL (<150)
--- NOTE | 2024-10-05 08:59 | HO.PSYADMNOT ---
[facility] Date of Service: 10/05/24 Chief Complaint: crisis Sources of Information: patient interviewed, chart reviewed and crisis/core team assessment reviewed HPI Subjective Notes: Edwards Warning and Conditional Voluntary Narrative: Patient is a 38-year-old non binary individual with history of MDD, PTSD and ADHD who was transported to [facility] by their partner due to suicidal ideation secondary to increased depression. Per crisis report, patient had gone into the [place] and superficially cut themselves with a knife. History of 2 prior inpatient psychiatric hospitalizations. In July 2023, patient attempted suicide via overdosing on prescription medications combined with alcohol and in March 2024, patient gathered supplies at their job with the intent to hang themselves but did not attempt. Patient reports history of depression and is currently being treated with weekly ketamine, beginning several months ago. Patient has been having feelings of worthlessness and hopelessness. Believes that there partner would be happier if they were no longer alive. Reports suicidal ideation but denies SI/HI/VH/AH. Denies any history of substance use. History of attending PHP. During admission assessment, patient presents alert and oriented x3. Calm and cooperative. Patient reports feeling depressed; patient stated, my is going through a really hard time. My part-time work gives me anxiety. My takes care of everything and she is at a breaking point which hurts. I figured it would be easier if she would not have to take care of me. I'm feeling like a burden to her . Patient reports passive suicidal ideation. Denies HI/VH/AH. Patient reports that they are having conflicting feelings of not following through with suicide attempt. Reports being medication compliant; open to medication adjustments. They report attending PHP in the past and finding it beneficial. Past Psychiatric History: History of 2 prior inpatient psychiatric hospitalizations OP psych provider: Morenita Acevedo History of PHP History of 2 prior suicide attempts. History of self-injurious behavior via cutting and hitting self. Medical Evaluation Reviewed: Yes [facility] Medical History On warfarin therapy ADHD Ventricular septal defect (VSD) Surgical History Aortic valve replaced H/O aortic valve repair Pulmonary valve replaced Family History: Unknown Social History: Lives at home with . No children. Works part-time as speech pathologist. Substance History: Denies Trauma History: Endorses trauma history Diagnostics Vital Signs (24Hr): Vital Signs - 24 hr 10/04/24 13:43 10/04/24 13:45 10/04/24 20:00 Temperature 97.6 F 97.6 F 99.1 F Pulse Rate 77 77 77 Respiratory Rate 18 17 16 Blood Pressure 141/65 H 141/65 H 132/68 Pulse Oximetry 100 100 99 Oxygen Delivery Method Room Air Room Air Room Air 10/04/24 20:56 Temperature 98.7 F Pulse Rate Respiratory Rate Blood Pressure Pulse Oximetry Oxygen Delivery Method BMI result Body Mass Index 29.4 Labs 10/02/24 14:24 10/04/24 13:54 Labs: Laboratory Results - last 48 hr 10/03/24 10/04/24 10/04/24 18:32 07:38 13:54 PT 36.9 H 31.9 H INR 3.2 H 2.7 H Sodium 138 Potassium 4.5 Chloride 107 Carbon Dioxide 25 Anion Gap 11 L BUN 11 Creatinine 0.74 0.73 Estim Creat Clear Calc 107.8 109.1 Estimated GFR > 60 > 60 Fasting Glucose 124 H Calcium 9.3 Total Bilirubin 0.5 AST 22 ALT 17 Alkaline Phosphatase 70 Total Protein 7.5 Albumin 4.2 Triglycerides Cholesterol LDL Cholesterol, Calc HDL Cholesterol 10/05/24 08:01 PT 35.9 H INR 3.1 H Sodium Potassium Chloride Carbon Dioxide Anion Gap BUN Creatinine Estim Creat Clear Calc Estimated GFR Fasting Glucose Calcium Total Bilirubin AST ALT Alkaline Phosphatase Total Protein Albumin Triglycerides 142 Cholesterol 210 H LDL Cholesterol, Calc 130 H HDL Cholesterol 52 Meds/Allergies Meds Home Medications ?Medication ?Instructions ?Recorded ?Confirmed ?Type ramipril 1.25 mg capsule 1.25 mg PO DAILY 09/04/23 10/02/24 History warfarin 10 mg tablet See Rx Instructions .Route .COMPLEX 09/16/23 10/02/24 History amitriptyline 75 mg tablet 75 mg PO BEDTIME 10/02/24 10/02/24 History clonazepam 1 mg tablet 2 mg PO BEDTIME 10/02/24 10/02/24 History duloxetine 60 mg capsule,delayed 60 mg PO DAILY 10/02/24 10/02/24 History release melatonin 3 mg tablet 3 mg PO BEDTIME 10/02/24 10/02/24 History methylphenidate HCl 36 mg 36 mg PO QAM 10/02/24 10/02/24 History tablet,extended release 24 hr Allergies Allergies Allergy/AdvReac Type Severity Reaction Status Date / Time No Known Allergies Allergy Verified 10/02/24 13:12 Mental Status Exam Mental Status Exam Patient Appearance: Appropriate Patient Orientation: Person, Place, Time and Situation Level of Consciousness: Awake and Alert Patient Behavior: Appropriate, Cooperative and Good Eye Contact Mood Description: Depressed Affect Description: Blunted Ability to Follow Directions: Good Speech Pattern: Clear and Appropriate Memory Description: Intact Hallucinations: None Delusions: Not Present Thought Process: Intact and Goal Oriented Thought Content: positive for Intact Assessment & Plan Assessment & Plan (1) Major depressive disorder: Status: Acute Code(s): F32.9 - Major depressive disorder, single episode, unspecified (2) ADHD: Status: Acute Qualifiers: Attention deficit-hyperactivity disorder type: unspecified Qualified Code(s): F90.9 - Attention-deficit hyperactivity disorder, unspecified type Code(s): F90.9 - Attention-deficit hyperactivity disorder, unspecified type (3) PTSD (post-traumatic stress disorder): Status: Acute Code(s): F43.10 - Post-traumatic stress disorder, unspecified Plan Patient is a 38-year-old non binary individual with history of MDD, PTSD and ADHD who was transported to [facility] by their partner due to suicidal ideation secondary to increased depression. Plan: CV 15 minute safety checks Continue home medications Obtain collateral Encourage groups Referral to [facility] Discharge planning Patient educated on: diagnosis and medication risk/benefits Reason for continued inpatient stay Substantial Risk for: harm to self and med/psych decompensation Statement Statement: I have reviewed the history and physical and performed a pertinent examination on my patient. No changes have occurred unless specified. If the History and Physical was not performed prior to admission, the Hospitalist's service will be consulted for completing the admission physical. Time Spent With Patient Time: Total time managing care of this patient today _60___ minutes.
[2024-10-05] MEDS: METHYLPHENIDATE HCL 36 MG 36 EACH PO (09:44)
[2024-10-05] MEDS: DULoxetine HCl 60 MG CAPSULE.DR PO (09:44)
[2024-10-05] MEDS: RAMIPRIL 1.25 MG 1.25 EACH PO (09:44)
[2024-10-05] MEDS: hydrOXYzine HCL 25 MG TABLET PO (11:45)
[2024-10-05] MEDS: Warfarin Sodium 5 MG TABLET 15 MG PO (18:10)
[2024-10-05 20:00] VITALS: BP 137/89; PULSE 78; RESP 16; TEMP 36.6; O2SAT 97
[2024-10-05] MEDS: clonazePAM 1 MG TABLET 2 MG PO (20:58)
[2024-10-05] MEDS: Amitriptyline HCl 25 MG TABLET 75 MG PO (20:58)
[2024-10-06 07:35] VITALS: BP 123/58; PULSE 63; RESP 18; TEMP 36.4; O2SAT 100
[2024-10-06] MEDS: RAMIPRIL 1.25 MG 1.25 EACH PO (08:05)
[2024-10-06] MEDS: DULoxetine HCl 60 MG CAPSULE.DR PO (08:05)
[2024-10-06] MEDS: METHYLPHENIDATE HCL 36 MG 36 EACH PO (08:05)
[2024-10-06 08:20] LABS: INTERNATIONAL NORM RATIO 3.6 (0.9-1.1); Prothrombin Time 42.6 SEC (10.9-12.4)
--- NOTE | 2024-10-06 09:02 | HO.PSYCHPN ---
Subjective Subjective Date of Service: 10/06/24 Reason For Visit: crisis Subjective Notes: Conditional Voluntary Interim History: Active on unit, social with peers. medication compliant. patient reports feeling depressed and suicidal ; Patient reports feeling upset and triggered from a staff member mis-gendering them. pt stated, I'm feeling more neutral about the suicide attempt. I'm not angry for not dying and I'm not angry for being alive . Patient reports they are open to trying any medication ; discussed Vraylar; pt agreed to trial. Start: Vraylar 1.5mg PO daily. INR 3.6 on 10/06/24; warfarin held. continue to monitor INR. Medication Compliance: Yes Side effects from medications: No Attending Groups: Yes Mental Status Exam Mental Status Exam Narrative: Pt is alert and oriented; behavior is cooperative and calm; dressed in casual attire; mood is described as depressed, anxious ; eye contact appropriate; Speech is normal rate, volume and not pressured; thought process is organized; Thought content is on tx; denies HI/VH/AH. Pt reports suicidal ideation with no plan. Diagnostics Vital Signs (24Hr): Vital Signs - 24 hr 10/05/24 20:00 10/06/24 07:35 Temperature 97.8 F 97.5 F Pulse Rate 78 63 Respiratory Rate 16 18 Blood Pressure 137/89 123/58 L Pulse Oximetry 97 100 Oxygen Delivery Method Room Air Room Air BMI result Body Mass Index 29.4 Labs 10/02/24 14:24 10/04/24 13:54 Labs: Laboratory Results - last 48 hr 10/04/24 10/05/24 10/06/24 13:54 08:01 07:56 PT 35.9 H 42.6 H INR 3.1 H 3.6 H Sodium 138 Potassium 4.5 Chloride 107 Carbon Dioxide 25 Anion Gap 11 L BUN 11 Creatinine 0.73 Estim Creat Clear Calc 109.1 Estimated GFR > 60 Fasting Glucose 124 H Calcium 9.3 Total Bilirubin 0.5 AST 22 ALT 17 Alkaline Phosphatase 70 Total Protein 7.5 Albumin 4.2 Triglycerides 142 Cholesterol 210 H LDL Cholesterol, Calc 130 H HDL Cholesterol 52 Medications Medications Current Medications Acetaminophen (Acetaminophen 325 Mg Tablet) 650 mg PO Q6H PRN PRN Reason: Headache/Pain, Scale 1-10 Al Hydroxide/Mg Hydroxide (Magnesium Hydrox/Alum Hydrox 30 Ml Oral.Susp) 30 ml PO Q6H PRN PRN Reason: Heartburn/Nausea Amitriptyline HCl (Amitriptyline Hcl 25 Mg Tablet) 75 mg PO BEDTIME [facility] Last Admin: 10/05/24 20:58 Dose: 75 mg Clonazepam (Clonazepam 1 Mg Tablet) 2 mg PO BEDTIME [facility] Last Admin: 10/05/24 20:58 Dose: 2 mg Duloxetine HCl (Duloxetine Hcl 60 Mg Capsule.Dr) 60 mg PO DAILY [facility] Last Admin: 10/06/24 08:05 Dose: 60 mg Hydroxyzine HCl (Hydroxyzine Hcl 25 Mg Tablet) 25 mg PO Q6H PRN PRN Reason: mild anxiety Last Admin: 10/05/24 11:45 Dose: 25 mg Magnesium Hydroxide (Milk Of Magnesia 30 Ml Oral.Susp) 30 ml PO DAILY PRN PRN Reason: Constipation Melatonin (Melatonin 3 Mg Tablet) 3 mg PO BEDTIME [facility] Last Admin: 10/05/24 23:00 Dose: Not Given Pt Own (Ramipril 1. (25mg Capsule)) 1.25 each PO DAILY [facility] Last Admin: 10/06/24 08:05 Dose: 1.25 each Pt Own ( Methylphenidate Hcl 36 Mg Tablet Extended Release 24hr) 36 mg PO DAILY [facility] Last Admin: 10/06/24 08:05 Dose: 36 mg Trazodone HCl (Trazodone Hcl 50 Mg Tablet) 50 mg PO BEDTIME MRX1 PRN PRN Reason: Insomnia Warfarin Sodium (Warfarin Sodium 5 Mg Tablet) 15 mg PO MoTuWeThFr@1800 [facility] Last Admin: 10/05/24 18:10 Dose: 15 mg Warfarin Sodium (Warfarin Sodium 10 Mg Tablet) 10 mg PO SuSa@1800 [facility] Last Admin: 10/03/24 21:29 Dose: 10 mg Allergies Allergies Allergy/AdvReac Type Severity Reaction Status Date / Time No Known Allergies Allergy Verified 10/02/24 13:12 Assessment & Plan Assessment & Plan (1) Major depressive disorder: Status: Acute Code(s): F32.9 - Major depressive disorder, single episode, unspecified (2) ADHD: Qualifiers: Attention deficit-hyperactivity disorder type: unspecified Qualified Code(s): F90.9 - Attention-deficit hyperactivity disorder, unspecified type Status: Acute Code(s): F90.9 - Attention-deficit hyperactivity disorder, unspecified type (3) PTSD (post-traumatic stress disorder): Status: Acute Code(s): F43.10 - Post-traumatic stress disorder, unspecified Plan Patient is a 38-year-old non binary individual with history of MDD, PTSD and ADHD who was transported to [facility] by their partner due to suicidal ideation secondary to increased depression. Plan: CV 15 minute safety checks Continue home medications Obtain collateral Encourage groups Referral to [facility] Discharge planning 10/06: Active on unit, social with peers. medication compliant. patient reports feeling depressed and suicidal ; Patient reports feeling upset and triggered from a staff member mis-gendering them. pt stated, I'm feeling more neutral about the suicide attempt. I'm not angry for not dying and I'm not angry for being alive . Patient reports they are open to trying any medication ; discussed Vraylar; pt agreed to trial. Start: Vraylar 1.5mg PO daily. INR 3.6 on 10/06/24; warfarin held. continue to monitor INR. Patient educated on: diagnosis, medication risk/benefits and therapeutic strategies Reason for continued inpatient stay Substantial Risk for: harm to self and med/psych decompensation Time Spent With Patient Time: Total time managing care of this patient today _20___ minutes.
[2024-10-06] MEDS: Cariprazine HCl 1.5 MG CAPSULE PO (16:32)
[2024-10-06 19:39] VITALS: BP 123/61; PULSE 75; TEMP 36.6; O2SAT 99
[2024-10-06] MEDS: clonazePAM 1 MG TABLET 2 MG PO (20:04)
[2024-10-06] MEDS: Amitriptyline HCl 25 MG TABLET 75 MG PO (20:04)
[2024-10-07 07:25] VITALS: BP 146/77; PULSE 81; RESP 14; TEMP 36.4; O2SAT 100
[2024-10-07 08:26] LABS: INTERNATIONAL NORM RATIO 3.2 (0.9-1.1); Prothrombin Time 37.9 SEC (10.9-12.4)
[2024-10-07] MEDS: Cariprazine HCl 1.5 MG CAPSULE PO (08:28)
[2024-10-07] MEDS: RAMIPRIL 1.25 MG 1.25 EACH PO (08:28)
[2024-10-07] MEDS: DULoxetine HCl 60 MG CAPSULE.DR PO (08:28)
[2024-10-07] MEDS: METHYLPHENIDATE HCL 36 MG 36 EACH PO (08:33)
--- NOTE | 2024-10-07 10:12 | HO.PSYCHPN ---
Subjective Subjective Date of Service: 10/07/24 Reason For Visit: crisis Subjective Notes: Conditional Voluntary Interim History: Active on unit, social with peers. medication compliant. attending groups. patient reports feeling depressed and anxious ; Patient stated, I showered and stretched, which is better than I have been. I'm no longer suicidal. I feel like the next step is to try to trust my friends to vent to . denies any side effects from starting vraylar. Medication Compliance: Yes Side effects from medications: No Attending Groups: Yes Mental Status Exam Mental Status Exam Narrative: Pt is alert and oriented; behavior is cooperative and calm; dressed in casual attire; mood is described as depressed, anxious ; eye contact appropriate; Speech is normal rate, volume and not pressured; thought process is organized; Thought content is on tx; denies SI/HI/VH/AH. Diagnostics Vital Signs (24Hr): Vital Signs - 24 hr 10/06/24 19:39 10/07/24 07:25 Temperature 97.8 F 97.6 F Pulse Rate 75 81 Respiratory Rate 14 Blood Pressure 123/61 146/77 H Pulse Oximetry 99 100 Oxygen Delivery Method Room Air Room Air BMI result Body Mass Index 29.4 Labs 10/02/24 14:24 10/04/24 13:54 Labs: Laboratory Results - last 48 hr 10/06/24 10/07/24 07:56 07:58 PT 42.6 H 37.9 H INR 3.6 H 3.2 H Medications Medications Current Medications Acetaminophen (Acetaminophen 325 Mg Tablet) 650 mg PO Q6H PRN PRN Reason: Headache/Pain, Scale 1-10 Al Hydroxide/Mg Hydroxide (Magnesium Hydrox/Alum Hydrox 30 Ml Oral.Susp) 30 ml PO Q6H PRN PRN Reason: Heartburn/Nausea Amitriptyline HCl (Amitriptyline Hcl 25 Mg Tablet) 75 mg PO BEDTIME [facility] Last Admin: 10/06/24 20:04 Dose: 75 mg Cariprazine (Cariprazine Hcl 1.5 Mg Capsule) 1.5 mg PO DAILY [facility] Last Admin: 10/07/24 08:28 Dose: 1.5 mg Clonazepam (Clonazepam 1 Mg Tablet) 2 mg PO BEDTIME [facility] Last Admin: 10/06/24 20:04 Dose: 2 mg Duloxetine HCl (Duloxetine Hcl 60 Mg Capsule.Dr) 60 mg PO DAILY [facility] Last Admin: 10/07/24 08:28 Dose: 60 mg Hydroxyzine HCl (Hydroxyzine Hcl 25 Mg Tablet) 25 mg PO Q6H PRN PRN Reason: mild anxiety Last Admin: 10/05/24 11:45 Dose: 25 mg Magnesium Hydroxide (Milk Of Magnesia 30 Ml Oral.Susp) 30 ml PO DAILY PRN PRN Reason: Constipation Melatonin (Melatonin 3 Mg Tablet) 3 mg PO BEDTIME [facility] Last Admin: 10/06/24 20:07 Dose: Not Given Pt Own (Ramipril 1. (25mg Capsule)) 1.25 each PO DAILY [facility] Last Admin: 10/07/24 08:28 Dose: 1.25 each Pt Own ( Methylphenidate Hcl 36 Mg Tablet Extended Release 24hr) 36 mg PO DAILY [facility] Last Admin: 10/07/24 08:33 Dose: 36 mg Trazodone HCl (Trazodone Hcl 50 Mg Tablet) 50 mg PO BEDTIME MRX1 PRN PRN Reason: Insomnia Warfarin Sodium (Warfarin Sodium 5 Mg Tablet) 15 mg PO [id number] [facility] Last Admin: 10/05/24 18:10 Dose: 15 mg Warfarin Sodium (Warfarin Sodium 10 Mg Tablet) 10 mg PO SuSa@1800 [facility] Last Admin: 10/03/24 21:29 Dose: 10 mg Warfarin Sodium (Warfarin Sodium 5 Mg Tablet) 5 mg PO DAILY@1800 [facility] Stop: 10/07/24 18:01 Allergies Allergies Allergy/AdvReac Type Severity Reaction Status Date / Time No Known Allergies Allergy Verified 10/02/24 13:12 Assessment & Plan Assessment & Plan (1) Major depressive disorder: Status: Acute Code(s): F32.9 - Major depressive disorder, single episode, unspecified (2) ADHD: Qualifiers: Attention deficit-hyperactivity disorder type: unspecified Qualified Code(s): F90.9 - Attention-deficit hyperactivity disorder, unspecified type Status: Acute Code(s): F90.9 - Attention-deficit hyperactivity disorder, unspecified type (3) PTSD (post-traumatic stress disorder): Status: Acute Code(s): F43.10 - Post-traumatic stress disorder, unspecified Plan Patient is a 38-year-old non binary individual with history of MDD, PTSD and ADHD who was transported to [facility] by their partner due to suicidal ideation secondary to increased depression. Plan: CV 15 minute safety checks Continue home medications Obtain collateral Encourage groups Referral to [facility] Discharge planning 10/06: Active on unit, social with peers. medication compliant. patient reports feeling depressed and suicidal ; Patient reports feeling upset and triggered from a staff member mis-gendering them. pt stated, I'm feeling more neutral about the suicide attempt. I'm not angry for not dying and I'm not angry for being alive . Patient reports they are open to trying any medication ; discussed Vraylar; pt agreed to trial. Start: Vraylar 1.5mg PO daily. INR 3.6 on 10/06/24; warfarin held. continue to monitor INR. 10/07: Active on unit, social with peers. medication compliant. attending groups. patient reports feeling depressed and anxious ; Patient stated, I showered and stretched, which is better than I have been. I'm no longer suicidal. I feel like the next step is to try to trust my friends to vent to . denies any side effects from starting vraylar. continue current tx plan. Patient educated on: diagnosis, medication risk/benefits and therapeutic strategies Reason for continued inpatient stay Substantial Risk for: med/psych decompensation Time Spent With Patient Time: Total time managing care of this patient today _20___ minutes.
[2024-10-07] MEDS: hydrOXYzine HCL 25 MG TABLET PO (12:12)
[2024-10-07] MEDS: Warfarin Sodium 5 MG TABLET PO (18:22)
[2024-10-07 20:00] VITALS: BP 143/77; PULSE 81; RESP 16; TEMP 36.8; O2SAT 100
[2024-10-07] MEDS: clonazePAM 1 MG TABLET 2 MG PO (20:23)
[2024-10-07] MEDS: Amitriptyline HCl 25 MG TABLET 75 MG PO (20:23)
[2024-10-08 07:40] VITALS: BP 148/80; PULSE 78; RESP 16; TEMP 36.4; O2SAT 100
[2024-10-08 08:21] LABS: INTERNATIONAL NORM RATIO 1.7 (0.9-1.1); Prothrombin Time 20.2 SEC (10.9-12.4)
[2024-10-08] MEDS: METHYLPHENIDATE HCL 36 MG 36 EACH PO (08:27)
[2024-10-08] MEDS: RAMIPRIL 1.25 MG 1.25 EACH PO (08:27)
[2024-10-08] MEDS: Cariprazine HCl 1.5 MG CAPSULE PO (08:28)
[2024-10-08] MEDS: DULoxetine HCl 60 MG CAPSULE.DR PO (08:28)
--- NOTE | 2024-10-08 09:39 | P.PNPSI_ITS ---
Subjective Subjective Date of Service: 10/08/24 Reason For Visit: crisis Subjective Notes: Conditional Voluntary Interim History: Active on unit, social with peers. medication compliant. attending groups. Patient reports feeling better today; pt stated, I'm making jokes and moving around more. Hanging out with other people has been helpful . Pt denies SI/HI/VH/AH. Requesting referral to PHP at [facility] [place];psych social worker aware. per nursing, slept 8 hours. Medication Compliance: Yes Side effects from medications: No Attending Groups: Yes Mental Status Exam Mental Status Exam Narrative: Pt is alert and oriented; behavior is cooperative and calm; dressed in casual attire; mood is described as better ; eye contact appropriate; Speech is normal rate, volume and not pressured; thought process is organized; Thought content is on tx; denies SI/HI/VH/AH. Diagnostics Vital Signs (24Hr): Vital Signs - 24 hr 10/07/24 20:00 10/08/24 07:40 Temperature 98.2 F 97.6 F Pulse Rate 81 78 Respiratory Rate 16 16 Blood Pressure 143/77 H 148/80 H Pulse Oximetry 100 100 Oxygen Delivery Method Room Air Room Air BMI result Body Mass Index 29.4 Labs 10/02/24 14:24 10/04/24 13:54 Labs: Laboratory Results - last 48 hr 10/07/24 10/08/24 07:58 07:44 PT 37.9 H 20.2 H D INR 3.2 H 1.7 H Medications Medications Current Medications Acetaminophen (Acetaminophen 325 Mg Tablet) 650 mg PO Q6H PRN PRN Reason: Headache/Pain, Scale 1-10 Al Hydroxide/Mg Hydroxide (Magnesium Hydrox/Alum Hydrox 30 Ml Oral.Susp) 30 ml PO Q6H PRN PRN Reason: Heartburn/Nausea Amitriptyline HCl (Amitriptyline Hcl 25 Mg Tablet) 75 mg PO BEDTIME [facility] Last Admin: 10/07/24 20:23 Dose: 75 mg Cariprazine (Cariprazine Hcl 1.5 Mg Capsule) 1.5 mg PO DAILY [facility] Last Admin: 10/08/24 08:28 Dose: 1.5 mg Clonazepam (Clonazepam 1 Mg Tablet) 2 mg PO BEDTIME [facility] Last Admin: 10/07/24 20:23 Dose: 2 mg Duloxetine HCl (Duloxetine Hcl 60 Mg Capsule.) 60 mg PO DAILY [facility] Last Admin: 10/08/24 08:28 Dose: 60 mg Hydroxyzine HCl (Hydroxyzine Hcl 25 Mg Tablet) 25 mg PO Q6H PRN PRN Reason: mild anxiety Last Admin: 10/07/24 12:12 Dose: 25 mg Magnesium Hydroxide (Milk Of Magnesia 30 Ml Oral.Susp) 30 ml PO DAILY PRN PRN Reason: Constipation Melatonin (Melatonin 3 Mg Tablet) 3 mg PO BEDTIME [facility] Last Admin: 10/07/24 22:10 Dose: Not Given Pt Own (Ramipril 1. (25mg Capsule)) 1.25 each PO DAILY [facility] Last Admin: 10/08/24 08:27 Dose: 1.25 each Pt Own ( Methylphenidate Hcl 36 Mg Tablet Extended Release 24hr) 36 mg PO DAILY [facility] Last Admin: 10/08/24 08:27 Dose: 36 mg Trazodone HCl (Trazodone Hcl 50 Mg Tablet) 50 mg PO BEDTIME MRX1 PRN PRN Reason: Insomnia Warfarin Sodium (Warfarin Sodium 5 Mg Tablet) 15 mg PO MoTuWeThFr@1800 [facility] Last Admin: 10/05/24 18:10 Dose: 15 mg Warfarin Sodium (Warfarin Sodium 10 Mg Tablet) 10 mg PO SuSa@1800 [facility] Last Admin: 10/03/24 21:29 Dose: 10 mg Allergies Allergies Allergy/AdvReac Type Severity Reaction Status Date / Time No Known Allergies Allergy Verified 10/02/24 13:12 Assessment & Plan Assessment & Plan (1) Major depressive disorder: Status: Acute Code(s): F32.9 - Major depressive disorder, single episode, unspecified (2) ADHD: Qualifiers: Attention deficit-hyperactivity disorder type: unspecified Qualified Code(s): F90.9 - Attention-deficit hyperactivity disorder, unspecified type Status: Acute Code(s): F90.9 - Attention-deficit hyperactivity disorder, unspecified type (3) PTSD (post-traumatic stress disorder): Status: Acute Code(s): F43.10 - Post-traumatic stress disorder, unspecified Plan Patient is a 38-year-old non binary individual with history of MDD, PTSD and ADHD who was transported to [facility] by their partner due to suicidal ideation secondary to increased depression. Plan: CV 15 minute safety checks Continue home medications Obtain collateral Encourage groups Referral to [facility] Discharge planning 10/06: Active on unit, social with peers. medication compliant. patient reports feeling depressed and suicidal ; Patient reports feeling upset and triggered from a staff member mis-gendering them. pt stated, I'm feeling more neutral about the suicide attempt. I'm not angry for not dying and I'm not angry for being alive . Patient reports they are open to trying any medication ; discussed Vraylar; pt agreed to trial. Start: Vraylar 1.5mg PO daily. INR 3.6 on 10/06/24; warfarin held. continue to monitor INR. 10/07: Active on unit, social with peers. medication compliant. attending groups. patient reports feeling depressed and anxious ; Patient stated, I showered and stretched, which is better than I have been. I'm no longer suicidal. I feel like the next step is to try to trust my friends to vent to . denies any side effects from starting vraylar. continue current tx plan. 10/08: Active on unit, social with peers. medication compliant. attending groups. Patient reports feeling better today; pt stated, I'm making jokes and moving around more. Hanging out with other people has been helpful . Pt denies SI/HI/VH/AH. Requesting referral to PHP at [facility];psych social worker aware. per nursing, slept 8 hours. Continue current tx plan. Patient educated on: medication risk/benefits and therapeutic strategies Reason for continued inpatient stay Substantial Risk for: med/psych decompensation Time Spent With Patient Time: Total time managing care of this patient today _20___ minutes.
[2024-10-08] MEDS: Warfarin Sodium 5 MG TABLET 15 MG PO (17:49)
[2024-10-08 20:00] VITALS: BP 139/77; PULSE 85; RESP 16; TEMP 36.9; O2SAT 95
[2024-10-08] MEDS: clonazePAM 1 MG TABLET 2 MG PO (20:32)
[2024-10-08] MEDS: Amitriptyline HCl 25 MG TABLET 75 MG PO (20:32)
[2024-10-09 08:00] VITALS: BP 107/62; PULSE 87; RESP 16; TEMP 36.4; O2SAT 100
[2024-10-09 08:16] LABS: INTERNATIONAL NORM RATIO 1.8 (0.9-1.1); Prothrombin Time 20.8 SEC (10.9-12.4)
[2024-10-09] MEDS: RAMIPRIL 1.25 MG 1.25 EACH PO (08:34)
[2024-10-09] MEDS: Cariprazine HCl 1.5 MG CAPSULE PO (08:34)
[2024-10-09] MEDS: DULoxetine HCl 60 MG CAPSULE.DR PO (08:34)
[2024-10-09] MEDS: METHYLPHENIDATE HCL 36 MG 36 EACH PO (08:35)
--- NOTE | 2024-10-09 09:03 | HO.PSYCHPN ---
Subjective Subjective Date of Service: 10/09/24 Reason For Visit: crisis Subjective Notes: Conditional Voluntary Interim History: Patient reports feeling good today; pt stated, I'm feeling better than when I came in. I spoke to my parents and I don't want to go to [facility] anymore because they have offered to pay for a program . Pt denies SI/HI/VH/AH. Continue current tx plan. Medication Compliance: Yes Side effects from medications: No Attending Groups: Yes Mental Status Exam Mental Status Exam Narrative: Pt is alert and oriented; behavior is cooperative and calm; dressed in casual attire; mood is described as good ; eye contact appropriate; Speech is normal rate, volume and not pressured; thought process is organized; Thought content is on tx; denies SI/HI/VH/AH. Diagnostics Vital Signs (24Hr): Vital Signs - 24 hr 10/08/24 20:00 10/09/24 08:00 Temperature 98.4 F 97.5 F Pulse Rate 85 87 Respiratory Rate 16 16 Blood Pressure 139/77 107/62 Pulse Oximetry 95 100 Oxygen Delivery Method Room Air Room Air BMI result Body Mass Index 29.4 Labs 10/02/24 14:24 10/04/24 13:54 Labs: Laboratory Results - last 48 hr 10/08/24 10/09/24 07:44 07:51 PT 20.2 H D 20.8 H INR 1.7 H 1.8 H Medications Medications Current Medications Acetaminophen (Acetaminophen 325 Mg Tablet) 650 mg PO Q6H PRN PRN Reason: Headache/Pain, Scale 1-10 Al Hydroxide/Mg Hydroxide (Magnesium Hydrox/Alum Hydrox 30 Ml Oral.Susp) 30 ml PO Q6H PRN PRN Reason: Heartburn/Nausea Amitriptyline HCl (Amitriptyline Hcl 25 Mg Tablet) 75 mg PO BEDTIME [facility] Last Admin: 10/08/24 20:32 Dose: 75 mg Cariprazine (Cariprazine Hcl 1.5 Mg Capsule) 1.5 mg PO DAILY [facility] Last Admin: 10/09/24 08:34 Dose: 1.5 mg Clonazepam (Clonazepam 1 Mg Tablet) 2 mg PO BEDTIME [facility] Last Admin: 10/08/24 20:32 Dose: 2 mg Duloxetine HCl (Duloxetine Hcl 60 Mg Capsule.Dr) 60 mg PO DAILY [facility] Last Admin: 10/09/24 08:34 Dose: 60 mg Hydroxyzine HCl (Hydroxyzine Hcl 25 Mg Tablet) 25 mg PO Q6H PRN PRN Reason: mild anxiety Last Admin: 10/07/24 12:12 Dose: 25 mg Magnesium Hydroxide (Milk Of Magnesia 30 Ml Oral.Susp) 30 ml PO DAILY PRN PRN Reason: Constipation Melatonin (Melatonin 3 Mg Tablet) 3 mg PO BEDTIME [facility] Last Admin: 10/08/24 20:34 Dose: Not Given Pt Own (Ramipril 1. (25mg Capsule)) 1.25 each PO DAILY [facility] Last Admin: 10/09/24 08:34 Dose: 1.25 each Pt Own ( Methylphenidate Hcl 36 Mg Tablet Extended Release 24hr) 36 mg PO DAILY [facility] Last Admin: 10/09/24 08:35 Dose: 36 mg Trazodone HCl (Trazodone Hcl 50 Mg Tablet) 50 mg PO BEDTIME MRX1 PRN PRN Reason: Insomnia Warfarin Sodium (Warfarin Sodium 5 Mg Tablet) 15 mg PO MoTuWeThFr@1800 [facility] Last Admin: 10/08/24 17:49 Dose: 15 mg Warfarin Sodium (Warfarin Sodium 10 Mg Tablet) 10 mg PO SuSa@1800 [facility] Last Admin: 10/03/24 21:29 Dose: 10 mg Allergies Allergies Allergy/AdvReac Type Severity Reaction Status Date / Time No Known Allergies Allergy Verified 10/02/24 13:12 Assessment & Plan Assessment & Plan (1) Major depressive disorder: Status: Acute Code(s): F32.9 - Major depressive disorder, single episode, unspecified (2) ADHD: Qualifiers: Attention deficit-hyperactivity disorder type: unspecified Qualified Code(s): F90.9 - Attention-deficit hyperactivity disorder, unspecified type Status: Acute Code(s): F90.9 - Attention-deficit hyperactivity disorder, unspecified type (3) PTSD (post-traumatic stress disorder): Status: Acute Code(s): F43.10 - Post-traumatic stress disorder, unspecified Plan Patient is a 38-year-old non binary individual with history of MDD, PTSD and ADHD who was transported to [facility] by their partner due to suicidal ideation secondary to increased depression. Plan: CV 15 minute safety checks Continue home medications Obtain collateral Encourage groups Referral to [facility] Discharge planning 10/06: Active on unit, social with peers. medication compliant. patient reports feeling depressed and suicidal ; Patient reports feeling upset and triggered from a staff member mis-gendering them. pt stated, I'm feeling more neutral about the suicide attempt. I'm not angry for not dying and I'm not angry for being alive . Patient reports they are open to trying any medication ; discussed Vraylar; pt agreed to trial. Start: Vraylar 1.5mg PO daily. INR 3.6 on 10/06/24; warfarin held. continue to monitor INR. 10/07: Active on unit, social with peers. medication compliant. attending groups. patient reports feeling depressed and anxious ; Patient stated, I showered and stretched, which is better than I have been. I'm no longer suicidal. I feel like the next step is to try to trust my friends to vent to . denies any side effects from starting vraylar. continue current tx plan. 10/08: Active on unit, social with peers. medication compliant. attending groups. Patient reports feeling better today; pt stated, I'm making jokes and moving around more. Hanging out with other people has been helpful . Pt denies SI/HI/VH/AH. Requesting referral to [facility] at [facility];nephrology social worker aware. per nursing, slept 8 hours. Continue current tx plan. 10/09: Patient reports feeling good today; pt stated, I'm feeling better than when I came in. I spoke to my parents and I don't want to go to [facility] anymore because they have offered to pay for a program . Pt denies SI/HI/VH/AH. Continue current tx plan. Patient educated on: diagnosis, medication risk/benefits and therapeutic strategies Reason for continued inpatient stay Substantial Risk for: med/psych decompensation Time Spent With Patient Time: Total time managing care of this patient today _20___ minutes.
[2024-10-09] MEDS: Warfarin Sodium 10 MG TABLET PO (17:24)
[2024-10-09 20:00] VITALS: BP 137/77; PULSE 79; RESP 16; TEMP 36.1; O2SAT 98
[2024-10-09] MEDS: clonazePAM 1 MG TABLET 2 MG PO (20:48)
[2024-10-09] MEDS: Amitriptyline HCl 25 MG TABLET 75 MG PO (20:48)
[2024-10-10] MEDS: hydrOXYzine HCL 25 MG TABLET PO ×2 (06:22→19:38)
[2024-10-10 07:35] LABS: MANUAL DIFF FLAG NO
[2024-10-10 07:42] LABS: Basophils Absolute Auto 0.1 X10*3/uL (0.0-0.2); Basophils Percent Auto 1.8 % (0-2); Eosinophils Absolute Auto 0.3 X10*3/uL (0.0-0.4); Eosinophils Percent Auto 4.8 % (0-4); Hematocrit 42.9 % (37.0-47.0); Hemoglobin 14.9 g/dl (12.0-16.0); Imm Gran Abs Auto 0.03 X10*3/uL (0.00-0.03); Imm Gran Pct Auto 0.4 % (0.0-0.4); Lymphocytes Absolute Auto 1.4 X10*3/uL (1.2-4.9); Lymphocytes Percent Auto 19.2 % (20-40); Mean Corpuscular HGB Conc 34.7 g/dl (31.0-35.0); Mean Corpuscular Hemoglobin 29.4 pg (27.0-33.0); Mean Corpuscular Volume 84.6 fL (80.0-98.0); Mean Platelet Volume 9.9 fL (9.4-12.3); Monocytes Absolute Auto 0.7 X10*3/uL (0.1-1.2); Neutrophils Absolute Auto 4.5 x10*3/uL (2.0-8.3); Neutrophils Percent Auto 63.8 % (45-73); Platelet Count 292 X10*3/uL (160-400); Red Blood Count 5.07 X10*6/uL (4.20-5.50); Red Cell Distribution Width 12.5 % (11.0-16.0); White Blood Count 7.1 X10*3/uL (4.8-10.8)
[2024-10-10 07:44] LABS: INTERNATIONAL NORM RATIO 2.5 (0.9-1.1); Prothrombin Time 28.7 SEC (10.9-12.4)
[2024-10-10 08:25] VITALS: BP 131/76; PULSE 76; RESP 16; TEMP 36.4; O2SAT 100
[2024-10-10] MEDS: DULoxetine HCl 60 MG CAPSULE.DR PO (08:47)
[2024-10-10] MEDS: Cariprazine HCl 1.5 MG CAPSULE PO (08:47)
[2024-10-10] MEDS: RAMIPRIL 1.25 MG 1.25 EACH PO (08:48)
[2024-10-10] MEDS: METHYLPHENIDATE HCL 36 MG 36 EACH PO (08:48)
--- NOTE | 2024-10-10 08:59 | P.PNPSI_ITS ---
Subjective Subjective Date of Service: 10/10/24 Reason For Visit: crisis Subjective Notes: Conditional Voluntary Interim History: Patient continues to report feeling good today; pt stated, I made a mistake and misunderstood what my said. I do want to go to [facility] . pt reports some anxiety about discharging home this week if continues to improve. denies SI/HI/VH/AH. Continue current tx plan. Medication Compliance: Yes Side effects from medications: No Attending Groups: Yes Mental Status Exam Mental Status Exam Narrative: Pt is alert and oriented; behavior is cooperative and calm; dressed in casual attire; mood is described as good ; eye contact appropriate; Speech is normal rate, volume and not pressured; thought process is organized; Thought content is on tx; denies SI/HI/VH/AH. Diagnostics Vital Signs (24Hr): Vital Signs - 24 hr 10/09/24 20:00 10/10/24 08:25 Temperature 97.0 F 97.6 F Pulse Rate 79 76 Respiratory Rate 16 16 Blood Pressure 137/77 131/76 Pulse Oximetry 98 100 Oxygen Delivery Method Room Air Room Air BMI result Body Mass Index 29.4 Labs 10/10/24 07:25 10/04/24 13:54 Labs: Laboratory Results - last 48 hr 10/09/24 10/10/24 10/10/24 07:51 07:25 07:26 WBC 7.1 RBC 5.07 Hgb 14.9 Hct 42.9 MCV 84.6 MCH 29.4 MCHC 34.7 RDW 12.5 Plt Count 292 MPV 9.9 Immature Gran % (Auto) 0.4 Neut % (Auto) 63.8 Lymph % (Auto) 19.2 L [place] % (Auto) 10.0 Eos % (Auto) 4.8 H Baso % (Auto) 1.8 Lymph # (Auto) 1.4 [place] # (Auto) 0.7 Eos # (Auto) 0.3 Baso # (Auto) 0.1 Abs Immat Gran (auto) 0.03 Absolute Neuts (auto) 4.5 Absolute Nucleated RBC 0.000 Nucleated RBC % (auto) 0.0 PT 20.8 H 28.7 H D INR 1.8 H 2.5 H Medications Medications Current Medications Acetaminophen (Acetaminophen 325 Mg Tablet) 650 mg PO Q6H PRN PRN Reason: Headache/Pain, Scale 1-10 Al Hydroxide/Mg Hydroxide (Magnesium Hydrox/Alum Hydrox 30 Ml Oral.Susp) 30 ml PO Q6H PRN PRN Reason: Heartburn/Nausea Amitriptyline HCl (Amitriptyline Hcl 25 Mg Tablet) 75 mg PO BEDTIME [facility] Last Admin: 10/09/24 20:48 Dose: 75 mg Cariprazine (Cariprazine Hcl 1.5 Mg Capsule) 1.5 mg PO DAILY [facility] Last Admin: 10/10/24 08:47 Dose: 1.5 mg Clonazepam (Clonazepam 1 Mg Tablet) 2 mg PO BEDTIME [facility] Last Admin: 10/09/24 20:48 Dose: 2 mg Duloxetine HCl (Duloxetine Hcl 60 Mg Capsule.Dr) 60 mg PO DAILY [facility] Last Admin: 10/10/24 08:47 Dose: 60 mg Hydroxyzine HCl (Hydroxyzine Hcl 25 Mg Tablet) 25 mg PO Q6H PRN PRN Reason: mild anxiety Last Admin: 10/10/24 06:22 Dose: 25 mg Magnesium Hydroxide (Milk Of Magnesia 30 Ml Oral.Susp) 30 ml PO DAILY PRN PRN Reason: Constipation Melatonin (Melatonin 3 Mg Tablet) 3 mg PO BEDTIME [facility] Last Admin: 10/09/24 20:52 Dose: Not Given Pt Own (Ramipril 1. (25mg Capsule)) 1.25 each PO DAILY [facility] Last Admin: 10/10/24 08:48 Dose: 1.25 each Pt Own ( Methylphenidate Hcl 36 Mg Tablet Extended Release 24hr) 36 mg PO DAILY [facility] Last Admin: 10/10/24 08:48 Dose: 36 mg Trazodone HCl (Trazodone Hcl 50 Mg Tablet) 50 mg PO BEDTIME MRX1 PRN PRN Reason: Insomnia Warfarin Sodium (Warfarin Sodium 5 Mg Tablet) 15 mg PO [email or web address] [facility] Last Admin: 10/08/24 17:49 Dose: 15 mg Warfarin Sodium (Warfarin Sodium 10 Mg Tablet) 10 mg PO [email or web address]@1800 [facility] Last Admin: 10/09/24 17:24 Dose: 10 mg Allergies Allergies Allergy/AdvReac Type Severity Reaction Status Date / Time No Known Allergies Allergy Verified 10/02/24 13:12 Assessment & Plan Assessment & Plan (1) Major depressive disorder: Status: Acute Code(s): F32.9 - Major depressive disorder, single episode, unspecified (2) ADHD: Qualifiers: Attention deficit-hyperactivity disorder type: unspecified Qualified Code(s): F90.9 - Attention-deficit hyperactivity disorder, unspecified type Status: Acute Code(s): F90.9 - Attention-deficit hyperactivity disorder, unspecified type (3) PTSD (post-traumatic stress disorder): Status: Acute Code(s): F43.10 - Post-traumatic stress disorder, unspecified Plan Patient is a 38-year-old non binary individual with history of MDD, PTSD and ADHD who was transported to [facility] by their partner due to suicidal ideation secondary to increased depression. Plan: CV 15 minute safety checks Continue home medications Obtain collateral Encourage groups Referral to [facility] Discharge planning 10/06: Active on unit, social with peers. medication compliant. patient reports feeling depressed and suicidal ; Patient reports feeling upset and triggered from a staff member mis-gendering them. pt stated, I'm feeling more neutral about the suicide attempt. I'm not angry for not dying and I'm not angry for being alive . Patient reports they are open to trying any medication ; discussed Vraylar; pt agreed to trial. Start: Vraylar 1.5mg PO daily. INR 3.6 on 10/06/24; warfarin held. continue to monitor INR. 10/07: Active on unit, social with peers. medication compliant. attending groups. patient reports feeling depressed and anxious ; Patient stated, I showered and stretched, which is better than I have been. I'm no longer suicidal. I feel like the next step is to try to trust my friends to vent to . denies any side effects from starting vraylar. continue current tx plan. 10/08: Active on unit, social with peers. medication compliant. attending groups. Patient reports feeling better today; pt stated, I'm making jokes and moving around more. Hanging out with other people has been helpful . Pt denies SI/HI/VH/AH. Requesting referral to [facility] at [facility];health and social care teacher aware. per nursing, slept 8 hours. Continue current tx plan. 10/09: Patient reports feeling good today; pt stated, I'm feeling better than when I came in. I spoke to my parents and I don't want to go to [facility] anymore because they have offered to pay for a program . Pt denies SI/HI/VH/AH. Continue current tx plan. 10/10: Patient continues to report feeling good today; pt stated, I made a mistake and misunderstood what my said. I do want to go to [facility] . pt reports some anxiety about discharging home this week if continues to improve. denies SI/HI/VH/AH. Continue current tx plan. Patient educated on: diagnosis, medication risk/benefits and therapeutic strategies Reason for continued inpatient stay Substantial Risk for: med/psych decompensation Time Spent With Patient Time: Total time managing care of this patient today _20___ minutes.
[2024-10-10] MEDS: Warfarin Sodium 10 MG TABLET PO (17:57)
[2024-10-10 20:00] VITALS: BP 127/85; PULSE 88; RESP 16; TEMP 36.4; O2SAT 98
[2024-10-10] MEDS: Amitriptyline HCl 25 MG TABLET 75 MG PO (20:59)
[2024-10-10] MEDS: clonazePAM 1 MG TABLET 2 MG PO (21:00)
[2024-10-11] MEDS: traZODone HCL 50 MG TABLET PO (02:48)
[2024-10-11 08:03] LABS: INTERNATIONAL NORM RATIO 2.7 (0.9-1.1); Prothrombin Time 31.1 SEC (10.9-12.4)
[2024-10-11 08:30] VITALS: BP 139/62; PULSE 69; RESP 17; TEMP 36.7; O2SAT 100
[2024-10-11] MEDS: Cariprazine HCl 1.5 MG CAPSULE PO (08:44)
[2024-10-11] MEDS: DULoxetine HCl 60 MG CAPSULE.DR PO (08:44)
[2024-10-11] MEDS: RAMIPRIL 1.25 MG 1.25 EACH PO (08:48)
[2024-10-11] MEDS: METHYLPHENIDATE HCL 36 MG 36 EACH PO (09:11)
--- NOTE | 2024-10-11 14:19 | HO.PSYCHPN ---
Subjective Subjective Date of Service: 10/11/24 Reason For Visit: crisis Subjective Notes: Conditional Voluntary Interim History: Active on unit, social with peers. attending groups. Patient continues to report feeling good today; they are looking forward to attending PHP. denies SI/HI/VH/AH. pt plans on following up with there outpatient providers. Medication Compliance: Yes Side effects from medications: No Attending Groups: Yes Mental Status Exam Mental Status Exam Narrative: Pt is alert and oriented; behavior is cooperative and calm; dressed in casual attire; mood is described as good ; eye contact appropriate; Speech is normal rate, volume and not pressured; thought process is organized; Thought content is on tx; denies SI/HI/VH/AH. Diagnostics Vital Signs (24Hr): Vital Signs - 24 hr 10/10/24 20:00 10/11/24 08:30 Temperature 97.6 F 98.0 F Pulse Rate 88 69 Respiratory Rate 16 17 Blood Pressure 127/85 139/62 Pulse Oximetry 98 100 Oxygen Delivery Method Room Air Room Air BMI result Body Mass Index 29.4 Labs 10/10/24 07:25 10/04/24 13:54 Labs: Laboratory Results - last 48 hr 10/10/24 10/10/24 10/11/24 07:25 07:26 07:41 WBC 7.1 RBC 5.07 Hgb 14.9 Hct 42.9 MCV 84.6 MCH 29.4 MCHC 34.7 RDW 12.5 Plt Count 292 MPV 9.9 Immature Gran % (Auto) 0.4 Neut % (Auto) 63.8 Lymph % (Auto) 19.2 L [place] % (Auto) 10.0 Eos % (Auto) 4.8 H Baso % (Auto) 1.8 Lymph # (Auto) 1.4 [place] # (Auto) 0.7 Eos # (Auto) 0.3 Baso # (Auto) 0.1 Abs Immat Gran (auto) 0.03 Absolute Neuts (auto) 4.5 Absolute Nucleated RBC 0.000 Nucleated RBC % (auto) 0.0 PT 28.7 H D 31.1 H INR 2.5 H 2.7 H Medications Medications Current Medications Acetaminophen (Acetaminophen 325 Mg Tablet) 650 mg PO Q6H PRN PRN Reason: Headache/Pain, Scale 1-10 Al Hydroxide/Mg Hydroxide (Magnesium Hydrox/Alum Hydrox 30 Ml Oral.Susp) 30 ml PO Q6H PRN PRN Reason: Heartburn/Nausea Amitriptyline HCl (Amitriptyline Hcl 25 Mg Tablet) 75 mg PO BEDTIME [facility] Last Admin: 10/10/24 20:59 Dose: 75 mg Cariprazine (Cariprazine Hcl 1.5 Mg Capsule) 1.5 mg PO DAILY [facility] Last Admin: 10/11/24 08:44 Dose: 1.5 mg Clonazepam (Clonazepam 1 Mg Tablet) 2 mg PO BEDTIME [facility] Last Admin: 10/10/24 21:00 Dose: 2 mg Duloxetine HCl (Duloxetine Hcl 60 Mg Capsule.Dr) 60 mg PO DAILY [facility] Last Admin: 10/11/24 08:44 Dose: 60 mg Hydroxyzine HCl (Hydroxyzine Hcl 25 Mg Tablet) 25 mg PO Q6H PRN PRN Reason: mild anxiety Last Admin: 10/10/24 19:38 Dose: 25 mg Magnesium Hydroxide (Milk Of Magnesia 30 Ml Oral.Susp) 30 ml PO DAILY PRN PRN Reason: Constipation Melatonin (Melatonin 3 Mg Tablet) 3 mg PO BEDTIME [facility] Last Admin: 10/10/24 21:14 Dose: Not Given Pt Own (Ramipril 1. (25mg Capsule)) 1.25 each PO DAILY [facility] Last Admin: 10/11/24 08:48 Dose: 1.25 each Pt Own ( Methylphenidate Hcl 36 Mg Tablet Extended Release 24hr) 36 mg PO DAILY [facility] Last Admin: 10/11/24 09:11 Dose: 36 mg Trazodone HCl (Trazodone Hcl 50 Mg Tablet) 50 mg PO BEDTIME MRX1 PRN PRN Reason: Insomnia Last Admin: 10/11/24 02:48 Dose: 50 mg Warfarin Sodium (Warfarin Sodium 5 Mg Tablet) 15 mg PO [email or web address] [facility] Last Admin: 10/08/24 17:49 Dose: 15 mg Warfarin Sodium (Warfarin Sodium 10 Mg Tablet) 10 mg PO SuSa@1800 [facility] Last Admin: 10/10/24 17:57 Dose: 10 mg Allergies Allergies Allergy/AdvReac Type Severity Reaction Status Date / Time No Known Allergies Allergy Verified 10/02/24 13:12 Assessment & Plan Assessment & Plan (1) Major depressive disorder: Status: Acute Code(s): F32.9 - Major depressive disorder, single episode, unspecified (2) ADHD: Qualifiers: Attention deficit-hyperactivity disorder type: unspecified Qualified Code(s): F90.9 - Attention-deficit hyperactivity disorder, unspecified type Status: Acute Code(s): F90.9 - Attention-deficit hyperactivity disorder, unspecified type (3) PTSD (post-traumatic stress disorder): Status: Acute Code(s): F43.10 - Post-traumatic stress disorder, unspecified Plan Patient is a 38-year-old non binary individual with history of MDD, PTSD and ADHD who was transported to [facility] by their partner due to suicidal ideation secondary to increased depression. Plan: CV 15 minute safety checks Continue home medications Obtain collateral Encourage groups Referral to [facility] Discharge planning 10/06: Active on unit, social with peers. medication compliant. patient reports feeling depressed and suicidal ; Patient reports feeling upset and triggered from a staff member mis-gendering them. pt stated, I'm feeling more neutral about the suicide attempt. I'm not angry for not dying and I'm not angry for being alive . Patient reports they are open to trying any medication ; discussed Vraylar; pt agreed to trial. Start: Vraylar 1.5mg PO daily. INR 3.6 on 10/06/24; warfarin held. continue to monitor INR. 10/07: Active on unit, social with peers. medication compliant. attending groups. patient reports feeling depressed and anxious ; Patient stated, I showered and stretched, which is better than I have been. I'm no longer suicidal. I feel like the next step is to try to trust my friends to vent to . denies any side effects from starting vraylar. continue current tx plan. 10/08: Active on unit, social with peers. medication compliant. attending groups. Patient reports feeling better today; pt stated, I'm making jokes and moving around more. Hanging out with other people has been helpful . Pt denies SI/HI/VH/AH. Requesting referral to [facility] at [facility];social media manager aware. per nursing, slept 8 hours. Continue current tx plan. 10/09: Patient reports feeling good today; pt stated, I'm feeling better than when I came in. I spoke to my parents and I don't want to go to [facility] anymore because they have offered to pay for a program . Pt denies SI/HI/VH/AH. Continue current tx plan. 10/10: Patient continues to report feeling good today; pt stated, I made a mistake and misunderstood what my said. I do want to go to [facility] . pt reports some anxiety about discharging home this week if continues to improve. denies SI/HI/VH/AH. Continue current tx plan. 10/11: Active on unit, social with peers. attending groups. Patient continues to report feeling good today; they are looking forward to attending PHP. denies SI/HI/VH/AH. pt plans on following up with there outpatient providers Patient educated on: diagnosis and medication risk/benefits Reason for continued inpatient stay Substantial Risk for: stable for discharge Time Spent With Patient Time: Total time managing care of this patient today _20___ minutes.
[2024-10-11] MEDS: Warfarin Sodium 5 MG TABLET 15 MG PO (17:57)
[2024-10-11 20:00] VITALS: BP 136/78; PULSE 82; RESP 16; TEMP 36.4; O2SAT 96
[2024-10-11] MEDS: Amitriptyline HCl 25 MG TABLET 75 MG PO (20:41)
[2024-10-11] MEDS: clonazePAM 1 MG TABLET 2 MG PO (20:41)
[2024-10-11] MEDS: Magnesium Hydrox/Alum Hydrox 30 ML ORAL.SUSP PO (21:51)
[2024-10-12] MEDS: traZODone HCL 50 MG TABLET PO (01:28)
[2024-10-12 07:41] VITALS: BP 143/67; PULSE 96; RESP 16; TEMP 36.6; O2SAT 99
[2024-10-12] MEDS: Cariprazine HCl 1.5 MG CAPSULE PO (08:04)
[2024-10-12] MEDS: DULoxetine HCl 60 MG CAPSULE.DR PO (08:04)
[2024-10-12] MEDS: METHYLPHENIDATE HCL 36 MG 36 EACH PO (08:05)
[2024-10-12] MEDS: RAMIPRIL 1.25 MG 1.25 EACH PO (08:05)
--- NOTE | 2024-10-12 09:19 | P.DS_ITS ---
DS: Providers Provider Date of Service: 10/12/24 Date of admission: 10/04/24 12:05 Date of discharge: 10/12/24 Primary care physician: Gwendolyn Beckford MD Admitting clinician: Ting Ugarte Attending physician on admission: Luis Daniel Cid Attending physician on discharge: Luis Daniel Cid Discharging clinician: Ting Ugarte DS: Diagnosis Discharge Diagnosis (1) Major depressive disorder: Status: Acute (2) ADHD: Status: Acute (3) PTSD (post-traumatic stress disorder): Status: Acute DS: Medications Discharge Medications Home Medications: Home Medications ?Medication ?Instructions ?Recorded ?Confirmed ramipril 1.25 mg capsule 1.25 mg PO DAILY 09/04/23 10/02/24 warfarin 10 mg tablet See Rx Instructions .Route .COMPLEX 09/16/23 10/02/24 amitriptyline 75 mg tablet 75 mg PO BEDTIME 10/02/24 10/02/24 clonazepam 1 mg tablet 2 mg PO BEDTIME 10/02/24 10/02/24 duloxetine 60 mg capsule,delayed 60 mg PO DAILY 10/02/24 10/02/24 release melatonin 3 mg tablet 3 mg PO BEDTIME 10/02/24 10/02/24 methylphenidate HCl 36 mg 36 mg PO QAM 10/02/24 10/02/24 tablet,extended release 24 hr Previous Rx's ?Medication ?Instructions ?Recorded cariprazine 1.5 mg capsule 1.5 mg PO DAILY 30 days #30 caps 10/11/24 (Vraylar) Mental Status Exam Mental Status Exam Narrative: Pt is alert and oriented; behavior is cooperative and calm; dressed in casual attire; mood is described as good ; eye contact appropriate; Speech is normal rate, volume and not pressured; thought process is organized; Thought content is on tx; denies SI/HI/VH/AH. Data Data Completed and Pending Completed studies during hospitalization [Text1]: 10/06/24 10/07/24 10/08/24 07:56 07:58 07:44 WBC RBC Hgb Hct MCV MCH MCHC RDW Plt Count MPV Immature Gran % (Auto) Neut % (Auto) Lymph % (Auto) [place] % (Auto) Eos % (Auto) Baso % (Auto) Lymph # (Auto) [place] # (Auto) Eos # (Auto) Baso # (Auto) Abs Immat Gran (auto) Absolute Neuts (auto) Absolute Nucleated RBC Nucleated RBC % (auto) PT 42.6 H 37.9 H 20.2 H D INR 3.6 H 3.2 H 1.7 H 10/09/24 10/10/24 10/10/24 07:51 07:25 07:26 WBC 7.1 RBC 5.07 Hgb 14.9 Hct 42.9 MCV 84.6 MCH 29.4 MCHC 34.7 RDW 12.5 Plt Count 292 MPV 9.9 Immature Gran % (Auto) 0.4 Neut % (Auto) 63.8 Lymph % (Auto) 19.2 L [place] % (Auto) 10.0 Eos % (Auto) 4.8 H Baso % (Auto) 1.8 Lymph # (Auto) 1.4 [place] # (Auto) 0.7 Eos # (Auto) 0.3 Baso # (Auto) 0.1 Abs Immat Gran (auto) 0.03 Absolute Neuts (auto) 4.5 Absolute Nucleated RBC 0.000 Nucleated RBC % (auto) 0.0 PT 20.8 H 28.7 H D INR 1.8 H 2.5 H 10/11/24 07:41 WBC RBC Hgb Hct MCV MCH MCHC RDW Plt Count MPV Immature Gran % (Auto) Neut % (Auto) Lymph % (Auto) [place] % (Auto) Eos % (Auto) Baso % (Auto) Lymph # (Auto) [place] # (Auto) Eos # (Auto) Baso # (Auto) Abs Immat Gran (auto) Absolute Neuts (auto) Absolute Nucleated RBC Nucleated RBC % (auto) PT 31.1 H INR 2.7 H 10/02/24 22:30 Urine clean catch - Clean Catch Midstream Urine Culture - Final Strep agalactiae (Grp B) DS: Summary Hospital Course Hospital Course: Patient is a 38-year-old non binary individual with history of MDD, PTSD and ADHD who was transported to [facility] by their partner due to suicidal ideation secondary to increased depression. Per crisis report, patient had gone into the [place]andall and superficially cut themselves with a knife. History of 2 prior inpatient psychiatric hospitalizations. In July 2023, patient attempted suicide via overdosing on prescription medications combined with alcohol and in March 2024, patient gathered supplies at their job with the intent to hang themselves but did not attempt. Patient reports history of depression and is currently being treated with weekly ketamine, beginning several months ago. Patient has been having feelings of worthlessness and hopelessness. Believes that there partner would be happier if they were no longer alive. Reports suicidal ideation but denies SI/HI/VH/AH. Denies any history of substance use. History of attending PHP. During admission assessment, patient presents alert and oriented x3. Calm and cooperative. Patient reports feeling depressed; patient stated, my is going through a really hard time. My part-time work gives me anxiety. My takes care of everything and she is at a breaking point which hurts. I figured it would be easier if she would not have to take care of me. I'm feeling like a burden to her . Patient reports passive suicidal ideation. Denies HI/VH/AH. Patient reports that they are having conflicting feelings of not following through with suicide attempt. Reports being medication compliant; open to medication adjustments. They report attending PHP in the past and finding it beneficial. Plan: CV 15 minute safety checks Continue home medications Obtain collateral Encourage groups Referral to [facility] Discharge planning Active on unit, social with peers. medication compliant. patient reports feeling depressed and suicidal ; Patient reports feeling upset and triggered from a staff member mis-gendering them. pt stated, I'm feeling more neutral about the suicide attempt. I'm not angry for not dying and I'm not angry for being alive . Patient reports they are open to trying any medication ; discussed Vraylar; pt agreed to trial. Start: Vraylar 1.5mg PO daily. INR 3.6 on 10/06/24; warfarin held. continue to monitor INR. Active on unit, social with peers. medication compliant. attending groups. patient reports feeling depressed and anxious ; Patient stated, I showered and stretched, which is better than I have been. I'm no longer suicidal. I feel like the next step is to try to trust my friends to vent to . denies any side effects from starting vraylar. continue current tx plan. Active on unit, social with peers. medication compliant. attending groups. Patient reports feeling better today; pt stated, I'm making jokes and moving around more. Hanging out with other people has been helpful . Pt denies SI/HI/VH/AH. Requesting referral to PHP at [facility];renal social worker aware. per nursing, slept 8 hours. Continue current tx plan. Patient reports feeling good today; pt stated, I'm feeling better than when I came in. I spoke to my parents and I don't want to go to [facility] anymore because they have offered to pay for a program . Pt denies SI/HI/VH/AH. Continue current tx plan. Patient continues to report feeling good today; pt stated, I made a mistake and misunderstood what my said. I do want to go to [facility] . pt reports some anxiety about discharging home this week if continues to improve. denies SI/HI/VH/AH. Continue current tx plan. Active on unit, social with peers. attending groups. Patient continues to report feeling good today; they are looking forward to attending [facility]. denies SI/HI/VH/AH. pt plans on following up with there outpatient providers Status at Discharge Cognitive/behavioral status at discharge: Patient has insight and demonstrates good judgment in terms of wanting to pursue treatment. Patient has a safety plan that includes presenting to the closest ER or calling 911 if feeling unsafe. Functional status at discharge: independent ambulation Overall status at discharge: patient is back to baseline Time Spent with Patient Time attestation: Total time managing care of this patient today _20___ minutes. Time spent: Less than 30 minutes Discharge Plan Discharge Anticipated Discharge Date/Time: 10/12/24 10:00 Patient Disposition: Home, Self-Care Discharge Diagnosis: MDD, PTSD, ADHD Referrals: [facility] [Other] - 10/25/24 11:00 am (Intake appointment) Gwendolyn Beckford MD [Primary Care Provider] - 1 Week Discharge Medications: New Vraylar 1.5 mg Capsule 1.5 mg PO DAILY 30 Days Qty: 30 0RF Continued amitriptyline 75 mg tablet 75 mg PO BEDTIME clonazepam 1 mg tablet 2 mg PO BEDTIME melatonin 3 mg tablet 3 mg PO BEDTIME methylphenidate HCl 36 mg tablet extended release 24hr 36 mg PO QAM duloxetine 60 mg capsule,delayed release(DR/EC) 60 mg PO DAILY ramipril 1.25 mg capsule 1.25 mg PO DAILY warfarin 10 mg tablet See Rx Instructions .ROUTE .COMPLEX Rx Instructions: Take 10 mg on Friday and Sundays and 15 mg on Friday-Friday or as directed by Coumadin clinic. Discharge Orders: Discharge Order (Routine); Ordered 10/12/24 Ordered By: Ting Ugarte Diet: Regular diet Activity on Discharge: As tolerated Stand Alone Forms: Patient Portal Discharge page, Community Support Print Language: Kinyarwanda Care Plan Goals: Maintain mood and safe behaviors Take medications as prescribed Practice coping skills Continue with outpatient providers and reach out to them as needed Health Concerns: Mood stability and behaviors Plan of Treatment: Follow up with your PCP, psychiatric provider and other outpatient providers regarding above concerns Take medications as prescribed Assessment: Patient has insight and demonstrates good judgment in terms of wanting to pursue treatment. Patient has a safety plan that includes presenting to the closest ER or calling 911 if feeling unsafe. Discharge Date/Time: 10/12/24 09:25
== END 2024-10-12 09:25 | disposition home or self-care (01) | DRG 754 ==
LOC: HO.ED 15:23 → HO.PADLT16 10-04 12:06
PROVIDERS: Emergency Medicine; Emergency Medicine Emergency Medical Services; Physician Assistant; Admitting Provider Registered Nurse; Emergency Provider Emergency Medicine; PCP Family Medicine; Responsible Provider Registered Nurse; Visit Provider Psychiatry & Neurology Psychiatry
DX: F32.9 Major depressive disorder, single episode, unspecified (principal); R45.851 Suicidal ideations; F43.10 Post-traumatic stress disorder, unspecified; F90.9 Attention-deficit hyperactivity disorder, unspecified type; Z79.01 Long term (current) use of anticoagulants; Z95.2 Presence of prosthetic heart valve; Z79.899 Other long term (current) drug therapy
CPT/HCPCS: 36415; 80053; 80061; 80307; 81001; 82565; 85025; 85610; 87086; 87147; 93005; 99285; S9485

== ENCOUNTER → 2024-10-04 09:38 | Outpatient (BNV) | payer BC, SELFPAY | PROVIDERS: Emergency Provider Emergency Medicine; PCP Family Medicine; Visit Provider Internal Medicine | DX: I45.2 Bifascicular block (principal); I51.7 Cardiomegaly | CPT/HCPCS: 93010 ==

== ENCOUNTER → 2024-10-04 12:05 | Outpatient (BNV) | payer BC, SELFPAY | PROVIDERS: Admitting Provider Registered Nurse; Emergency Provider Emergency Medicine; PCP Family Medicine; Responsible Provider Registered Nurse; Visit Provider Registered Nurse | DX: F32.9 Major depressive disorder, single episode, unspecified (principal); F90.9 Attention-deficit hyperactivity disorder, unspecified type; F43.10 Post-traumatic stress disorder, unspecified | CPT/HCPCS: 90792 ==

== ENCOUNTER 2024-11-05 08:15 | Outpatient (RCR) | payer BC, SELFPAY ==
--- NOTE | 2024-10-25 16:07 | HO.PHP ---
This grant writer met with Shane after group 4 due to being triggered by the exercise on the causes of depression. They stated that they struggle with thoughts of self-loathing and the initial prompt of this activity suggested depression is not a character flaw, but then went into examining how personality type, thoughts, and behaviors play a role in depression. This grant writer suggested that the initial stages work on identification, and that it can be challenging to hear these ideas originally. The activity ended with accomplishments and this grant writer suggested focusing on accomplishments as homework in order to focus on positive aspects of self. This appeared receptive. Pt left program for the day reporting no immediate safety concerns and was able to contract for safety.
--- NOTE | 2024-10-26 12:49 | PC.ADMIT ---
Shane Yepez?lyndsay is a 38 year old, non-binary individual and prefers the pronouns they/them. Shane is alert and oriented x 4 and cooperative with the admission process, their affect is flat and mood is depressed. Shane was referred to the [facility] program as a step down from admission on [facility] with discharge on 10/12/24. Shane attended [facility] in August of 2023 though did not complete the program due to being misgendered. Per [facility] assessment Shane reports ongoing struggles with depression, hopelessness and worthlessness. Per intake assessment Shane expressed believing that their spouse would be happier if they were not alive; they report that these feelings are persistent and have not subsided. Per intake questionnaire Shane reports seeking treatment at [facility] due to a ?suicide attempt on 10/02/24. I feel worthless, like a burden. Discouraged by lack of progress (3 attempts within 15 mo.? Shane feels like they are a disappointment and ruining their ?s life. Shane endorses symptoms of depression, anxiety, hopelessness, helplessness, worthlessness, disrupted sleep, lack of energy, poor concentration, focus, shame and guilt. Shane denies suicidal ideation, plan or intent and that they could come to staff if feeling unsafe. Shane denies any current substance use, I used to drink on occasion and take edibles but have not done that in over a year. I find that since starting all of these psychiatric meds I just don't feel it. Shane rates current anxiety levels at around 5/10 and depression as, all over the place.
[2024-10-26 12:51] VITALS: BP 132/84; PULSE 72; RESP 18; BMI 29.6
--- NOTE | 2024-10-26 14:32 | PC.NURSE ---
During their admission assessment Shane shared that they are very hyper-vigilant of their surroundings and was very triggered yesterday after group. They shared that they had a friend that was in the program a few weeks ago that was sectioned for 72 hours from the program. Shane identified being brought behind the locked unit door and led down a long hallway and sat down in a little room with staff between them and the door as very triggering to them, I almost didn't come back today, I was afraid someone would put me on a 72 hour hold. Staff was alerted to Shane's concerns so that similar situations do noit happen in the future. It was also explained that the door to the unit only locks from the outside and that they were not locked in.
--- NOTE | 2024-10-27 23:21 | P.HPPSP_ITS ---
HPI Date of Service: 10/26/24 Chief Complaint: SI HPI Past Psychiatric History: History of 2 prior inpatient psychiatric hospitalizations OP psych provider: Morenita Acevedo History of PHP History of 2 prior suicide attempts. History of self-injurious behavior via cutting and hitting self. [facility] Medical History On warfarin therapy ADHD Ventricular septal defect (VSD) Surgical History Aortic valve replaced H/O aortic valve repair Pulmonary valve replaced Family History: Unknown Social History: Lives at home with . No children. Works part-time as speech pathologist. Trauma History: Endorses trauma history Diagnostics Vital Signs (24Hr): BMI result Body Mass Index 29.6 Meds/Allergies Meds Home Medications ?Medication ?Instructions ?Recorded ?Confirmed ?Type ramipril 1.25 mg capsule 1.25 mg PO DAILY 09/04/23 10/26/24 History warfarin 10 mg tablet See Rx Instructions .Route .COMPLEX 09/16/23 10/26/24 History amitriptyline 75 mg tablet 75 mg PO BEDTIME 10/02/24 10/26/24 History clonazepam 1 mg tablet 2 mg PO BEDTIME 10/02/24 10/26/24 History duloxetine 60 mg capsule,delayed 60 mg PO DAILY 10/02/24 10/26/24 History release methylphenidate HCl 36 mg 36 mg PO QAM 10/02/24 10/26/24 History tablet,extended release 24 hr sumatriptan succinate 100 mg tablet 100 mg PO USEASDIRECTD PRN migraine 10/29/24 10/29/24 History Allergies Allergies Allergy/AdvReac Type Severity Reaction Status Date / Time No Known Allergies Allergy Verified 10/02/24 13:12 Assessment & Plan Assessment & Plan Plan Admit to PHP VS reviewed: afebrile, BP ? bpm decrease duloxetine from 60 mg/d to 40 mg/d start Latuda at 20 mg/d x 2 days then increase to 40 mg/day w meals start Lamictal 25 mg qd (cont to titrate) continue other regular medications? Routine lab work ordered as indicated EKG, routine for baseline QTc for medication considerations as indicated UDS as indicated MassPat reviewed Continue to monitor as per protocol Patient educated on: diagnosis and medication risk/benefits Informed Consent: understands Reason for continued partial hosp. stay Substantial Risk for: inability to function, rapid decompensation and med/psych decompensation Certification I certify that partial hospital treatment is medically necessary due to the symptoms and problems resulting from the patient's mental illness and the failure to treat the patient at the partial hospital level of care would likely result in the patient requiring inpatient psychiatric care which could not be prevented at a less intensive level of care. Time Spent With Patient Time: Total time managing care of this patient today ___60_ minutes.
--- NOTE | 2024-10-28 16:07 | HO.PHP ---
Pt's case was opened and reviewed in team meeting.
--- NOTE | 2024-11-01 10:49 | HO.IOP ---
During the first group, Shane, reported to feel that the only thing that she (they) does at the Program and at home is listening to other people problems and burst in tears. Reported to feel extremely tired and that was going back home to have some rest. Stated to realized that she (they) took the night medications instead the morning ones. After the group the clinician talk to the client to verify about any safety concerns but the client denied any SI, plan, or intent. The clinician requested a call back to the Program [facility] [employer] ([employer] at her (their) arrival home and she (they) did and confirm to make it home safe.
--- NOTE | 2024-11-03 13:59 | PM.EVENT ---
Event Note Date of Service: 11/03/24 Time Spent With Patient Time: Total time managing care of this patient today ____ minutes.
--- NOTE | 2024-11-05 12:20 | HO.PHPPROGNO ---
Subjective Subjective Date of Service: 11/05/24 Reason For Visit: SI Diagnostics Vital Signs (24Hr): BMI result Body Mass Index 29.6 Assessment & Plan Reason for contiued partial hosp. stay Substantial Risk for: stable for discharge Certification I certify that partial hospital treatment is medically necessary due to the symptoms and problems resulting from the patient's mental illness and the failure to treat the patient at the partial hospital level of care would likely result in the patient requiring inpatient psychiatric care which could not be prevented at a less intensive level of care. Total time managing care of this patient today ____ minutes. Discharge Plan Discharge Attending provider: Dana Bond Medications: New duloxetine 20 mg capsule,delayed release(DR/EC) 20 mg PO BID Qty: 60 0RF lurasidone 40 mg tablet 40 mg PO QPM Qty: 30 0RF Rx Instructions: must administer with food (at least 350 calories) guanfacine 1 mg tablet extended release 24 hr 1 mg PO DAILY Qty: 14 0RF hydroxyzine pamoate 25 mg capsule 25 mg PO BID PRN (Reason: anxiety, sleep) Qty: 30 0RF Continued amitriptyline 75 mg tablet 75 mg PO BEDTIME sumatriptan succinate 100 mg tablet 100 mg PO USEASDIRECTD PRN (Reason: migraine) methylphenidate HCl 36 mg tablet extended release 24hr 36 mg PO QAM Qty: 30 0RF ramipril 1.25 mg capsule 1.25 mg PO DAILY warfarin 10 mg tablet See Rx Instructions .ROUTE .COMPLEX Rx Instructions: Take 10 mg on Friday and Sundays and 15 mg on Friday-Friday or as directed by Coumadin clinic. Changed clonazepam 1 mg tablet 1 mg PO BEDTIME Qty: 14 0RF Rx Instructions: taper as tolerated lamotrigine 25 mg tablet See Rx Instructions .ROUTE .COMPLEX 28 Days Qty: 70 0RF Rx Instructions: take 2 tablets po daily for 2 weeks, take 3 tablets daily Discontinued duloxetine 60 mg capsule,delayed release(DR/EC) 60 mg PO DAILY Vraylar 1.5 mg Capsule 1.5 mg PO DAILY 30 Days Qty: 30 0RF Patient Education: Depression (DC), Post Traumatic Stress Disorder (DC), Anxiety (ED), Anxiety (GEN) Print Language: Unable To Collect
== END 2024-11-05 23:59 | disposition home or self-care (01) ==
LOC: HO.PHPA 08:15
PROVIDERS: Visit Provider Psychiatry & Neurology Psychiatry
DX: R45.851 Suicidal ideations (principal); Z91.51 Personal history of suicidal behavior; Z91.52 Personal history of nonsuicidal self-harm
CPT/HCPCS: 90791; 90853

== ENCOUNTER → 2024-11-05 08:15 | Outpatient (BNV) | payer BC, SELFPAY | PROVIDERS: Visit Provider Psychiatry & Neurology Psychiatry | DX: F32.9 Major depressive disorder, single episode, unspecified (principal); F41.1 Generalized anxiety disorder; F43.89 Other reactions to severe stress; F90.9 Attention-deficit hyperactivity disorder, unspecified type; F69 Unspecified disorder of adult personality and behavior; F48.9 Nonpsychotic mental disorder, unspecified | CPT/HCPCS: 99499 ==